=== PATIENT | female | born 1945 | race Caucasian/White ===

== ENCOUNTER 2017-11-01 13:27 | Inpatient (IN) | END 2017-11-07 16:04 | disposition home or self-care (01) | DRG 38 | DX: I65.23 Occlusion and stenosis of bilateral carotid arteries (principal); H34.11 Central retinal artery occlusion, right eye; E11.9 Type 2 diabetes mellitus without complications; I10 Essential (primary) hypertension; E78.5 Hyperlipidemia, unspecified; H54.61 Unqualified visual loss, right eye, normal vision left eye; N85.8 Other specified noninflammatory disorders of uterus; I25.10 Atherosclerotic heart disease of native coronary artery without angina pectoris; Z79.82 Long term (current) use of aspirin; Z79.4 Long term (current) use of insulin ==

== ENCOUNTER 2018-05-14 05:25 | Inpatient (IN) ==
[2018-05-14] MEDS ORDERED: Sodium Chlor 0.9% Inj 77.5 ML, Papaverine Inj 60 MG, Nitroglycerin Inj 100 MCG, dilTIAZ... IRRIGATION SCH ×3 (06:15)
[2018-05-14] MEDS ORDERED: Dextrose 50% in Water 50 ML Vial IV.PUSH PRN ×2 (06:15→12:08)
[2018-05-14] MEDS ORDERED: Chlorhexidine 4% Topical 120 APPLIC/120 ML Bottle TOPICAL SCH (06:15)
[2018-05-14] MEDS ORDERED: Sodium Chloride 0.9% Irr Bot 500 ML, ceFAZolin Inj 500 MG IRRIGATION SCH ×2 (06:15)
[2018-05-14] MEDS ORDERED: Insulin Regular (For Infusion) 100 UNIT in Sodium Chlor 0.9% Inj 99 ML IV.CONT PRN ×2 (06:15→12:08)
[2018-05-14] MEDS ORDERED: Metoprolol Tartrate 25 MG Tablet PO ONE (06:17)
[2018-05-14] MEDS ORDERED: Chlorhexidine Gluconate 2% 1 Pack (2 Cloths) TOPICAL ONE (06:17)
[2018-05-14] MEDS ORDERED: Heparin - SQ 10,000 UNITS/ML Vial ONE ×2 (06:39)
[2018-05-14] MEDS ORDERED: Sodium Chlor 0.9% Inj 500 ML IV.SIG SCH (07:00)
[2018-05-14] MEDS ORDERED: ceFAZolin 2 GM IV; once IV.SIG ONE (08:15)
[2018-05-14] MEDS ORDERED: Potassium Chlor 40 mEq Premix 40 MEQ/100 ML PIGGYBACK ONE (09:30)
[2018-05-14] MEDS ORDERED: ceFAZolin 1 GM Premix Inj 1 GM/50 ML FROZ.PIGGY IV.SIG ONE (12:06)
[2018-05-14] MEDS ORDERED: Calcium Chloride Inj 1 GM/10 ML Syringe IV.PUSH PRN (12:08)
[2018-05-14] MEDS ORDERED: Post-op Orders (for Pharmacy) OTHER STA (12:08)
[2018-05-14] MEDS ORDERED: Potassium Chlor 20 mEq Premix 20 MEQ/100 ML PIGGYBACK IV.SIG PRN ×3 (12:08)
[2018-05-14] MEDS ORDERED: Acetaminophen 650 MG Supp RECTAL PRN (12:08)
[2018-05-14] MEDS ORDERED: RESP: Racemic Epinephrine 2.25% 0.5 ML Neb NEB PRN (12:08)
[2018-05-14] MEDS ORDERED: hydrALAZINE HCl Inj 20 MG/ML Vial IV.PUSH PRN (12:08)
[2018-05-14] MEDS ORDERED: Calcium Chloride Inj 1 GM in Sodium Chlor 0.9% Inj 100 ML IV.SIG PRN (12:08)
[2018-05-14] MEDS ORDERED: Ketorolac Inj 30 MG/ML (IVP) Vial IV.PUSH PRN (12:08)
[2018-05-14] MEDS ORDERED: Albumin Human 5% Inj 250 ML IV.SIG PRN (12:08)
[2018-05-14] MEDS ORDERED: Metoprolol Inj 5 MG/5 ML Vial IV.PUSH PRN (12:08)
[2018-05-14] MEDS ORDERED: fentaNYL Citrate Inj 100 MCG/2 ML Ampul IV.PUSH PRN (12:08)
[2018-05-14] MEDS ORDERED: Acetaminophen 325 MG Tablet PO PRN (12:08)
[2018-05-14] MEDS ORDERED: Dexmedetomidine Inj 200 MCG in Sodium Chlor 0.9% Inj 48 ML IV.CONT PRN (12:08)
[2018-05-14] MEDS ORDERED: Magnesium Sulfate Inj 2 GM in Sodium Chlor 0.9% Inj 96 ML IV.SIG PRN ×4 (12:08)
[2018-05-14] MEDS ORDERED: Clevidipine Inj 25 MG/50 ML VIAL IV.CONT PRN (12:08)
--- NOTE | 2018-05-14 12:17 | P.OP ---
Date of procedure: 05/14/18 Anesthesia: VIELKA Surgeon: Manjinder Hunt MD Operation and Findings: PREPROCEDURE DIAGNOSES 1. Severe Multi Vessel Coronary Artery Disease. 2. Cervical cancer status post radiation therapy POSTPROCEDURE DIAGNOSES Same SURGICAL PROCEDURE 1. Off-pump Coronary Artery Bypass Grafting x 3 with Left Internal Mammary Artery (PAPPAS) to Left Anterior Descending (LAD), reverse saphenous vein graft to obtuse Marginal branch of the left Circumflex artery, reverse saphenous vein graft to the posterior Descending branch of the right Coronary artery 2. Left leg Endoscopic Vein [place] 3. Intraoperative Vein Mapping. SURGEON Manjinder Hunt MD CABLE SPLICER HELPER JON Song ANESTHESIA General endotracheal HVAC FIELD SERVICE TECHNICIAN MARTINEZ Conroy MD PREPARATION ChloraPrep. COUNTS Needle, sponge, and instrument counts were correct. DRAINS Two 32-Khmer mediastinal tubes. COMPLICATIONS None. INDICATIONS FOR PROCEDURE The patient is a 72-year-old presenting with chest pain. Patient was noted to have multi vessel coronary artery disease. The patient is being brought to the operating room for surgical revascularization therapy. PROCEDURE Patient was brought to the operating room and placed supine on the OR table. Following the induction of adequate general endotracheal anesthesia and placement of appropriate monitoring devices, intraoperative vein mapping was performed which revealed small but usable-caliber conduit in bilateral lower extremities. The patient was then prepped and draped in standard sterile fashion. Next, 2500 units of intravenous heparin was given. The left greater saphenous vein was harvested endoscopically. This appeared to be a useable- caliber conduit. Simultaneously, a median sternotomy was performed and the left internal mammary artery dissected free off the posterior sternal table. The patient was systemically heparinized and anticoagulation monitored by serial ACT measurements. The internal mammary artery had excellent pulsatile flow in it and was a good-caliber conduit. The pericardium was then divided in the midline, the cradle created and targets analyzed. At this point, all anastomoses were performed in a beating-heart fashion using the [employer] stabilizing system. The left internal mammary artery was anastomosed to the mid LAD (1.75 mm) in an end-to-side fashion using 7-0 Prolene. Segment of saphenous vein graft was then anastomosed to the OM1 (2 mm) in an end-to-side fashion using 7-0 Prolene. The final segment was anastomosed to the RPDA (2 mm) in an end-to-side fashion using 7-0 Prolene. The proximal anastomoses were then constructed to the ascending aorta in a running manner using 6-0 Prolene. All anastomotic sites were inspected and appeared to be hemostatic and patent. Protamine solution was given. Strict hemostasis was assured. The closure was undertaken. 2 chest tubes were placed. The pericardium was reapproximated in the midline. The sternum was approximated using sternal wires. The muscular and fascial layer were then closed in 3 layers. The endoscopic vein harvest site was closed in 2 layers. The patient tolerated the procedure well and was transferred to CVICU in stable condition.
[2018-05-14] MEDS ORDERED: ceFAZolin Inj 2,000 MG in Sodium Chlor 0.9% Inj 80 ML IV.SIG SCH (13:00)
[2018-05-14] MEDS ORDERED: Albumin Human 5% Inj 250 ML IV.SIG ONE (13:01)
[2018-05-14] MEDS ORDERED: fentaNYL Citrate Inj 250 MCG/5 ML Ampul ONE (13:10)
--- NOTE | 2018-05-14 14:03 | XR ---
EXAM DATE: 05/14/2018 1:59 PM EST AGE/SEX: 72 years / Female INDICATIONS: Post op cabg. CLINICAL DATA: This is the patient's initial encounter. Patient reports that signs and symptoms have been present for 1 day and indicates a pain score of Nonresponsive. MEDICAL/SURGICAL HISTORY: . diabetes, cervical cancer, hypertension, stroke . carotid endarter ectomy. COMPARISON: [facility], XR CHEST PA AND LAT, 05/06/2018. . FINDINGS: The endotracheal tube, left-sided chest tube and nasogastric tube are all in good position. There is a right-sided port. The catheter tip overlies the SVC. There is a left subclavian line the catheter f rom the subclavian overlies the SVC as well. The pulmonary parenchyma demonstrates only minimal atelectatic change at the left lung base. The osseous structures are intact. CONCLUSION: 1. Support equipment in satisfactory position. 2. Stable postoperative chest. Electronically signed by: Nicholas Coombs MD 05/14/2018 2:02 PM EST
[2018-05-14] MEDS: Mupirocin 2% Nasal Oint Topical Syringe EACH NARE SCH ×2 (14:25→21:19)
--- NOTE | 2018-05-14 14:54 | P.PNCV ---
- Note Subjective/Hospital Course: 72-year-old patient of Dr. Alpesh Matos, Dr. Markell Chun and Dr. Echavarria, initially seen 01/07/18 who has quite an extensive history, but had been complaining of some chest pain off and on for about 6 months. He had a recent nuclear stress test that showed small to moderate stress-induced inferior lateral wall ischemia. Cardiology was consulted at that time. During the course of that admission, she apparently had some vision loss in her right eye and went to her social work professor who sent her directly to the hospital. That was in October and she underwent a complete workup which showed 50-69% stenosis of both carotid arteries. 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 She underwent right carotid endarterectomy with patch angioplasty on 11/06/2017 and has been followed as an outpatient by her social work professor receiving injections of Avastin once a month to that right eye. In the meantime, she also had developed some vaginal spotting which started in April 2017, was initially seen by Urology and had a negative cystoscopy; however, due to the continuation of her vaginal bleeding , she underwent cervical biopsies, which showed a stage II cervical adenocarcinoma. Apparently the tumor has replaced the cervix and has extended into the parametrial tissue and proximal vaginal bilaterally. No tumor extension into the pelvic sidewalls. She received her Infusaport and has followed with Dr. Carias for radiation and chemotherapy with cisplatin by Dr. Rodriguez. She underwent evaluation of the chest pain and underwent cardiac catheterization, which showed left main disease 10% proximal, LAD 70%, the OM had 80% stenosis and the RCA 95%. The EF was 55%. We were consulted at that time to evaluate for coronary artery bypass grafting. PAST MEDICAL HISTORY: Includes carotid artery disease, stage II cervical adenocarcinoma, diabetes mellitus type 2, coronary artery disease chronic disease stage II, hyperlipidemia, hypertension, history of kidney stones, history of recent cerebrovascular accident with a right retinal artery embolism, cataracts. PAST SURGICAL HISTORY: Right carotid endarterectomy 11/06/2016, cataract surgery bilateral, cholecystectomy, cystectomy, left hip surgery, colonoscopy. She was seen again in [facility] with Dr Hunt 04/30/18, she has since undergone recent therapy of her cervical cancer with completion of the treatment 05/14 pt electively admitted for surgery 1. Off-pump Coronary Artery Bypass Grafting x 3 with Left Internal Mammary Artery (PAPPAS) to Left Anterior Descending (LAD), reverse saphenous vein graft to obtuse Marginal branch of the left Circumflex artery, reverse saphenous vein graft to the posterior Descending branch of the right Coronary artery 2. Left leg Endoscopic Vein [place] 3. Intraoperative Vein Mapping. Objective: Vital Signs - 24 hr 05/14/18 07:02 05/14/18 12:52 05/14/18 13:00 Temperature 98.1 F 97.5 F L Pulse Rate 76 58 L Respiratory Rate 18 12 12 Blood Pressure 130/77 124/53 L Pulse Oximetry 100 99 100 05/14/18 13:08 05/14/18 13:43 05/14/18 14:26 Temperature 97.5 F L Pulse Rate 77 Respiratory Rate 21 Blood Pressure Pulse Oximetry 05/14/18 14:34 Temperature 97.4 F L Pulse Rate 77 Respiratory Rate 14 Blood Pressure 109/52 L Pulse Oximetry 100 Labs: Laboratory Results - last 12 hr 05/14/18 05/14/18 05/14/18 06:35 06:45 06:45 POC Glucose 132 H Nasal Screen MRSA (PCR) Not detected Blood Type A Positive Antibody Screen Negative MTS Gel Crossmatch See Detail 05/14/18 14:01 POC Glucose 99 Nasal Screen MRSA (PCR) Blood Type Antibody Screen MTS Gel Crossmatch
[2018-05-14] MEDS: ceFAZolin 2 GM Premix Inj 2 GM/50 ML PIGGYBACK IV.SIG SCH (20:40)
[2018-05-14] MEDS: Morphine Sulfate Inj 2 MG/ML Vial IV.PUSH PRN ×2 (21:19→21:29)
[2018-05-14] MEDS: Amiodarone 200 MG Tablet PO SCH (21:19)
[2018-05-15] MEDS: ceFAZolin 2 GM Premix Inj 2 GM/50 ML PIGGYBACK IV.SIG SCH ×3 (05:10→19:49)
[2018-05-15] MEDS: Morphine Sulfate Inj 2 MG/ML Vial IV.PUSH PRN (05:11)
[2018-05-15 05:12] LABS: Hematocrit 21.2 % (35.0-46.0); Hemoglobin 7.5 gm/dL (11.6-15.3); Mean Corpuscular HGB Conc 35.1 % (32.0-36.0); Mean Corpuscular Hemoglobin 34.5 pg (27.0-34.0); Mean Corpuscular Volume 98.3 fL (80.0-100.0); Mean Platelet Volume 9.7 fL (7.0-11.0); Platelet Count 80 th/mm3 (150-450); Red Blood Count 2.16 mil/mm3 (4.00-5.30); Red Cell Distribution Width 14.3 % (11.6-17.2); White Blood Count 7.2 th/mm3 (4.0-11.0)
[2018-05-15 05:37] LABS: Calcium 7.9 mg/dL (8.5-10.1); Carbon Dioxide 24.1 meq/L (21.0-32.0); Magnesium 1.5 mg/dL (1.5-2.5); Potassium 4.5 meq/L (3.5-5.1)
--- NOTE | 2018-05-15 06:01 | XR ---
EXAM DATE: 05/15/2018 5:23 AM EST AGE/SEX: 72 years / Female INDICATIONS: Short of breath. CLINICAL DATA: This is the patient's subsequent encounter. Patient reports that signs and symptoms h ave been present for 2 days and indicates a pain score of 0/10. MEDICAL/SURGICAL HISTORY: . diabetes, cervical cancer, hypertension, stroke . CABG. carotid endarterectomy. COMPARISON: [facility] [place], CHEST 1V SINGLE AP, 05/14/2018. . FINDINGS: Endotracheal tube and nasogastric tube have been removed. Central and left chest tubes present withou t pneumothorax. [id number] in right atrium. Mild basilar airspace disease with probable trace pleu ral effusions. CONCLUSION: Cardiomegaly with mild basilar airspace disease. Interval extubation and removal of NG tube. No pneum othorax. Electronically signed by: Enoc Cote MD 05/15/2018 5:59 AM EST
--- NOTE | 2018-05-15 07:43 | ECG ---
Date Performed: 05/15/2018 Time Performed: 03:35:58 PTAGE: 72 years EKG: CONSIDER ACUTE ST ELEVATION FL Sinus rhythm with PAC(s) Short SC interval Anterolateral ST elevation, CONSIDER ACUTE INFARCT versus pericarditis Low QRS voltages in precordial leads Abnormal ECG PREVIOUS TRACING : 01/07/2018 08.22 DOCTOR: Zac Mcgrath Interpretating Date/Time 05/15/2018 07:43:01
[2018-05-15] MEDS ORDERED: Sod Phosphate/Sod Biphosphate (Adult) Enema 133 ML Bottle RECTAL PRN (08:37)
[2018-05-15] MEDS ORDERED: Dextrose 50% in Water 50 ML Vial IV.PUSH PRN (08:37)
[2018-05-15] MEDS ORDERED: Bisacodyl 10 MG Supp RECTAL PRN (08:37)
[2018-05-15] MEDS ORDERED: Insulin Detemir Inj 1,000 UNIT/10 ML Vial SQ ONE (08:37)
[2018-05-15] MEDS: Metoprolol Tartrate 25 MG Tablet PO SCH ×3 (09:12→21:49)
[2018-05-15] MEDS: Amiodarone 200 MG Tablet PO SCH ×2 (09:13→21:50)
[2018-05-15] MEDS: Multivitamin/Minerals Therapeutic Tablet PO SCH (09:13)
[2018-05-15] MEDS: Mupirocin 2% Nasal Oint Topical Syringe EACH NARE SCH ×2 (09:14→21:49)
[2018-05-15] MEDS: Insulin NovoLOG Aspart Correctional Sugar Inj SQ SCH ×4 (10:51→22:32)
--- NOTE | 2018-05-15 10:55 | P.DIET ---
Nutritional Evaluation Screening comments: MDC for diet education s/p CABG x 3 received. Patient Navigator to provide education. Consult RD if complexities with diet education arise.
--- NOTE | 2018-05-15 17:20 | P.PNCV ---
- Note Subjective/Hospital Course: 72-year-old patient of Dr. Alpesh Matos, Dr. Markell Chun and Dr. Echavarria, initially seen 01/07/18 who has quite an extensive history, but had been complaining of some chest pain off and on for about 6 months. He had a recent nuclear stress test that showed small to moderate stress-induced inferior lateral wall ischemia. Cardiology was consulted at that time. During the course of that admission, she apparently had some vision loss in her right eye and went to her child care associate teacher who sent her directly to the hospital. That was in October and she underwent a complete workup which showed 50-69% stenosis of both carotid arteries. 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 She underwent right carotid endarterectomy with patch angioplasty on 11/06/2017 and has been followed as an outpatient by her child care associate teacher receiving injections of Avastin once a month to that right eye. In the meantime, she also had developed some vaginal spotting which started in April 2017, was initially seen by Urology and had a negative cystoscopy; however, due to the continuation of her vaginal bleeding , she underwent cervical biopsies, which showed a stage II cervical adenocarcinoma. Apparently the tumor has replaced the cervix and has extended into the parametrial tissue and proximal vaginal bilaterally. No tumor extension into the pelvic sidewalls. She received her Infusaport and has followed with Dr. Carias for radiation and chemotherapy with cisplatin by Dr. Rodriguez. She underwent evaluation of the chest pain and underwent cardiac catheterization, which showed left main disease 10% proximal, LAD 70%, the OM had 80% stenosis and the RCA 95%. The EF was 55%. We were consulted at that time to evaluate for coronary artery bypass grafting. PAST MEDICAL HISTORY: Includes carotid artery disease, stage II cervical adenocarcinoma, diabetes mellitus type 2, coronary artery disease chronic disease stage II, hyperlipidemia, hypertension, history of kidney stones, history of recent cerebrovascular accident with a right retinal artery embolism, cataracts. PAST SURGICAL HISTORY: Right carotid endarterectomy 11/06/2016, cataract surgery bilateral, cholecystectomy, cystectomy, left hip surgery, colonoscopy. She was seen again in [facility] office with Dr Hunt 04/30/18, she has since undergone recent therapy of her cervical cancer with completion of the treatment 05/14 pt electively admitted for surgery 1. Off-pump Coronary Artery Bypass Grafting x 3 with Left Internal Mammary Artery (PAPPAS) to Left Anterior Descending (LAD), reverse saphenous vein graft to obtuse Marginal branch of the left Circumflex artery, reverse saphenous vein graft to the posterior Descending branch of the right Coronary artery 2. Left leg Endoscopic Vein [place] 3. Intraoperative Vein Mapping. 3500cc crystalloid , 240cc cell saver, 500cc EBL 05/15 pt up in chair mag replaced 1.5 hgb 7.5/ monitor / recheck labs in am continue amiodarone levemir to wean off insulin was o tresiba at home transfer to stepdown global st elevation / probable pericarditis / will monitor Objective: Vital Signs - 24 hr 05/14/18 18:29 05/14/18 19:00 05/14/18 20:49 Temperature 97.7 F Pulse Rate 75 73 Respiratory Rate 17 24 16 Blood Pressure 103/43 L Pulse Oximetry 99 99 05/14/18 21:27 05/14/18 23:00 05/15/18 01:39 Temperature 99 F Pulse Rate 75 Respiratory Rate 20 20 20 Blood Pressure 98/45 L Pulse Oximetry 99 05/15/18 03:00 05/15/18 04:36 05/15/18 07:00 Temperature 99.8 F H 97.6 F Pulse Rate 85 88 92 H Respiratory Rate 18 14 16 Blood Pressure 99/48 L 137/60 Pulse Oximetry 92 L 94 L 05/15/18 08:59 05/15/18 10:46 05/15/18 11:00 Temperature 98.2 F Pulse Rate 101 H 78 Respiratory Rate 17 20 16 Blood Pressure 112/54 L Pulse Oximetry 96 96 05/15/18 11:54 05/15/18 13:31 05/15/18 15:00 Temperature 98.2 F 98.6 F Pulse Rate 71 73 84 Respiratory Rate 16 18 Blood Pressure 112/54 L 115/73 Pulse Oximetry 96 98 05/15/18 15:04 05/15/18 16:00 05/15/18 16:15 Temperature 98.2 F Pulse Rate 79 78 Respiratory Rate 18 18 17 Blood Pressure 116/57 L Pulse Oximetry 94 L 05/15/18 17:00 Temperature Pulse Rate 83 Respiratory Rate Blood Pressure Pulse Oximetry GENERAL: A&O x 3 SKIN: Warm and dry. prevena dressing to chest , incision intact to left leg HEAD: Normocephalic. EYES: No scleral icterus. No injection or drainage. NECK: Supple, trachea midline. No JVD or lymphadenopathy. CARDIOVASCULAR: Regular rate and rhythm without murmurs, gallops,+ rubs. RESPIRATORY: Breath sounds equal bilaterally. No accessory muscle use. diminished in bases / chest tube to wall suction, no air leak GASTROINTESTINAL: Abdomen soft, non-tender, nondistended. MUSCULOSKELETAL: No cyanosis, or edema. BACK: Nontender without obvious deformity. No CVA tenderness. Labs: Laboratory Results - last 12 hr 05/15/18 05/15/18 05/15/18 04:45 04:45 08:16 WBC 7.2 RBC 2.16 L Hgb 7.5 L Hct 21.2 L MCV 98.3 MCH 34.5 H MCHC 35.1 RDW 14.3 Plt Count 80 L MPV 9.7 Sodium 139 Potassium 4.5 D Chloride 108 H Carbon Dioxide 24.1 Anion Gap 7 BUN 15 Creatinine 0.89 Estimated GFR 62 L POC Glucose 163 H Random Glucose 106 Calcium 7.9 L D Magnesium 1.5 05/15/18 05/15/18 10:44 14:59 WBC RBC Hgb Hct MCV MCH MCHC RDW Plt Count MPV Sodium Potassium Chloride Carbon Dioxide Anion Gap BUN Creatinine Estimated GFR POC Glucose 188 H 191 H Random Glucose Calcium Magnesium Result Diagrams: 05/15/18 04:45 05/15/18 04:45 ASA, statin , , amiodarone gentle diuresis monitor plt / hold plavix today monitor HGB OOB ambulate resume metformin / add bid levemir
[2018-05-15] MEDS: Docusate Sodium 100 MG Capsule PO SCH (21:50)
[2018-05-15] MEDS: Insulin Detemir Inj 1,000 UNIT/10 ML Vial SQ SCH (21:51)
[2018-05-16] MEDS: Insulin NovoLOG Aspart Correctional Sugar Inj SQ SCH ×5 (02:37→21:10)
[2018-05-16] MEDS: ceFAZolin 2 GM Premix Inj 2 GM/50 ML PIGGYBACK IV.SIG SCH (04:00)
[2018-05-16 04:40] LABS: Baso % (Auto) 0.4 % (0.0-2.0); Eos % (Auto) 0.2 % (0.0-4.0); Lymph # (Auto) 0.4 th/mm3 (1.0-4.8); Mean Corpuscular HGB Conc 34.4 % (32.0-36.0); Mean Corpuscular Volume 98.9 fL (80.0-100.0); Mean Platelet Volume 9.1 fL (7.0-11.0); Mono # (Auto) 0.4 th/mm3 (0.0-0.9); Mono % (Auto) 7.8 % (0.0-8.0); Neut # (Auto) 4.6 th/mm3 (1.8-7.7); Neut % (Auto) 84.6 % (16.0-70.0); Red Blood Count 1.88 mil/mm3 (4.00-5.30); Red Cell Distribution Width 14.3 % (11.6-17.2); White Blood Count 5.5 th/mm3 (4.0-11.0)
[2018-05-16 04:49] LABS: Hematocrit 18.6 % (35.0-46.0); Hemoglobin 6.4 gm/dL (11.6-15.3)
[2018-05-16 04:50] LABS: Platelet Count 5 th/mm3 (150-450)
[2018-05-16 05:05] LABS: Calcium 8.2 mg/dL (8.5-10.1); Carbon Dioxide 25.9 meq/L (21.0-32.0); Magnesium 2.2 mg/dL (1.5-2.5); Potassium 4.1 meq/L (3.5-5.1)
[2018-05-16 06:08] LABS: Platelet Estimate Rare (Normal); Platelet Morphology Normal (Normal)
[2018-05-16] MEDS: Polyethylene Glycol 3350 17 GM Packet PO SCH (08:54)
[2018-05-16] MEDS: Multivitamin/Minerals Therapeutic Tablet PO SCH (08:55)
[2018-05-16] MEDS: Metoprolol Tartrate 25 MG Tablet PO SCH ×2 (08:55→21:10)
[2018-05-16] MEDS: Amiodarone 200 MG Tablet PO SCH ×2 (08:56→21:10)
[2018-05-16] MEDS: Docusate Sodium 100 MG Capsule PO SCH ×2 (08:56→21:10)
[2018-05-16] MEDS: Insulin Detemir Inj 1,000 UNIT/10 ML Vial SQ SCH ×2 (08:57→21:11)
[2018-05-16] MEDS: Mupirocin 2% Nasal Oint Topical Syringe EACH NARE SCH ×2 (08:57→22:24)
--- NOTE | 2018-05-16 17:53 | P.PNCV ---
- Note Subjective/Hospital Course: 72-year-old patient of Dr. Alpesh Matos, Dr. Markell Chun and Dr. Echavarria, initially seen 01/07/18 who has quite an extensive history, but had been complaining of some chest pain off and on for about 6 months. He had a recent nuclear stress test that showed small to moderate stress-induced inferior lateral wall ischemia. Cardiology was consulted at that time. During the course of that admission, she apparently had some vision loss in her right eye and went to her customer manager who sent her directly to the hospital. That was in October and she underwent a complete workup which showed 50-69% stenosis of both carotid arteries. 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 She underwent right carotid endarterectomy with patch angioplasty on 11/06/2017 and has been followed as an outpatient by her customer manager receiving injections of Avastin once a month to that right eye. In the meantime, she also had developed some vaginal spotting which started in April 2017, was initially seen by Urology and had a negative cystoscopy; however, due to the continuation of her vaginal bleeding , she underwent cervical biopsies, which showed a stage II cervical adenocarcinoma. Apparently the tumor has replaced the cervix and has extended into the parametrial tissue and proximal vaginal bilaterally. No tumor extension into the pelvic sidewalls. She received her Infusaport and has followed with Dr. Carias for radiation and chemotherapy with cisplatin by Dr. Rodriguez. She underwent evaluation of the chest pain and underwent cardiac catheterization, which showed left main disease 10% proximal, LAD 70%, the OM had 80% stenosis and the RCA 95%. The EF was 55%. We were consulted at that time to evaluate for coronary artery bypass grafting. PAST MEDICAL HISTORY: Includes carotid artery disease, stage II cervical adenocarcinoma, diabetes mellitus type 2, coronary artery disease chronic disease stage II, hyperlipidemia, hypertension, history of kidney stones, history of recent cerebrovascular accident with a right retinal artery embolism, cataracts. PAST SURGICAL HISTORY: Right carotid endarterectomy 11/06/2016, cataract surgery bilateral, cholecystectomy, cystectomy, left hip surgery, colonoscopy. She was seen again in [facility] office with Dr Hunt 04/30/18, she has since undergone recent therapy of her cervical cancer with completion of the treatment 05/14 pt electively admitted for surgery 1. Off-pump Coronary Artery Bypass Grafting x 3 with Left Internal Mammary Artery (PAPPAS) to Left Anterior Descending (LAD), reverse saphenous vein graft to obtuse Marginal branch of the left Circumflex artery, reverse saphenous vein graft to the posterior Descending branch of the right Coronary artery 2. Left leg Endoscopic Vein [place] 3. Intraoperative Vein Mapping. 3500cc crystalloid , 240cc cell saver, 500cc EBL 05/15 pt up in chair mag replaced 1.5 hgb 7.5/ monitor / recheck labs in am continue amiodarone levemir to wean off insulin was o tresiba at home transfer to stepdown global st elevation / probable pericarditis / will monitor 05/16 pt with worsening post blood loss anemia , HGB 6.4, PLT count 5?? s/p 2 units PRBC and one pk plt hematology consulted, HIT panel will leave chest tubes in Objective: Vital Signs - 24 hr 05/15/18 18:00 05/15/18 19:00 05/15/18 19:27 Temperature Pulse Rate 68 91 H Respiratory Rate Blood Pressure Pulse Oximetry 96 05/15/18 20:00 05/15/18 21:00 05/15/18 22:00 Temperature 97.5 F L Pulse Rate 89 80 77 Respiratory Rate 18 Blood Pressure 152/65 H Pulse Oximetry 98 05/15/18 23:00 05/16/18 00:00 05/16/18 01:00 Temperature 97.5 F L Pulse Rate 81 89 76 Respiratory Rate 18 Blood Pressure 152/65 H Pulse Oximetry 98 05/16/18 02:00 05/16/18 03:00 05/16/18 04:00 Temperature 98 F Pulse Rate 76 81 79 Respiratory Rate 18 Blood Pressure 108/53 L Pulse Oximetry 98 05/16/18 05:00 05/16/18 05:50 05/16/18 05:58 Temperature 98.4 F 99.1 F Pulse Rate 80 70 71 Respiratory Rate 18 Blood Pressure 117/57 L 110/52 L Pulse Oximetry 98 98 05/16/18 06:00 05/16/18 06:05 05/16/18 06:30 Temperature 98.6 F 98.1 F Pulse Rate 80 70 70 Respiratory Rate 18 Blood Pressure 107/53 L 107/54 L Pulse Oximetry 98 05/16/18 06:39 05/16/18 06:49 05/16/18 07:00 Temperature 98.1 F 98.4 F Pulse Rate 68 71 75 Respiratory Rate 18 18 Blood Pressure 114/51 L 113/55 L Pulse Oximetry 99 100 05/16/18 08:00 05/16/18 09:00 05/16/18 09:21 Temperature 98.4 F Pulse Rate 74 78 81 Respiratory Rate 18 Blood Pressure 124/63 Pulse Oximetry 99 94 L 05/16/18 10:00 05/16/18 10:05 05/16/18 10:10 Temperature Pulse Rate 74 Respiratory Rate 18 Blood Pressure Pulse Oximetry 98 05/16/18 11:00 05/16/18 11:50 05/16/18 12:00 Temperature 97.9 F 97.9 F Pulse Rate 74 73 78 Respiratory Rate 18 18 Blood Pressure 108/54 L 100/50 L Pulse Oximetry 94 L 94 L 05/16/18 12:10 05/16/18 13:00 05/16/18 13:33 Temperature 98.6 F Pulse Rate 82 76 Respiratory Rate 18 18 Blood Pressure 100/50 L Pulse Oximetry 93 L 05/16/18 14:00 05/16/18 15:00 05/16/18 15:57 Temperature 98.2 F Pulse Rate 82 90 93 H Respiratory Rate 18 Blood Pressure 156/68 H Pulse Oximetry 94 L 05/16/18 16:00 Temperature Pulse Rate 84 Respiratory Rate Blood Pressure Pulse Oximetry GENERAL: A&O x 3 SKIN: Warm and dry. prevena dressing to chest , incision intact to left leg HEAD: Normocephalic. EYES: No scleral icterus. No injection or drainage. NECK: Supple, trachea midline. No JVD or lymphadenopathy. CARDIOVASCULAR: Regular rate and rhythm without murmurs, gallops, or rubs. RESPIRATORY: Breath sounds equal bilaterally. No accessory muscle use. slightly diminished in bases, chest tube to wall suction, no air leak / drained 250cc/ 24 hrs GASTROINTESTINAL: Abdomen soft, non-tender, nondistended. MUSCULOSKELETAL: No cyanosis, or edema. BACK: Nontender without obvious deformity. No CVA tenderness. Labs: Laboratory Results - last 12 hr 05/14/18 05/16/18 05/16/18 06:45 04:10 11:44 WBC Differential . Diff Scan Auto diff confirmed Platelet Estimate Rare L Platelet Morphology Normal POC Glucose 257 H Blood Type A Positive Antibody Screen Negative MTS Gel Crossmatch See Detail 05/16/18 05/16/18 17:15 17:31 WBC Differential Diff Scan Platelet Estimate Platelet Morphology POC Glucose 31 L* 130 H Blood Type Antibody Screen MTS Gel Crossmatch Result Diagrams: 05/16/18 04:10 05/16/18 04:10 Telemetry: NSR - Plan (3) S/P CABG x 3 Plan: hold ASA, plavix for now with severe pancytopenia hematology consult pulm toielting OOB as tolerated, will leave chest tubes in transfused with 2 units PRBC and PLT
[2018-05-16 18:30] LABS: Hematocrit 27.3 % (35.0-46.0); Hemoglobin 9.6 gm/dL (11.6-15.3); Mean Corpuscular HGB Conc 35.2 % (32.0-36.0); Mean Corpuscular Hemoglobin 33.1 pg (27.0-34.0); Mean Corpuscular Volume 94.1 fL (80.0-100.0); Mean Platelet Volume 9.2 fL (7.0-11.0); Platelet Count 120 th/mm3 (150-450); Red Cell Distribution Width 17.8 % (11.6-17.2); White Blood Count 7.9 th/mm3 (4.0-11.0)
[2018-05-16 18:35] LABS: Albumin 2.5 g/dL (3.4-5.0)
[2018-05-16 18:36] LABS: Total Protein 5.6 g/dL (6.4-8.2)
[2018-05-16 18:39] LABS: Activated Partial Thrombo Time 24.5 sec (23.4-31.7); Prothrombin Time 10.3 sec (9.8-11.6)
[2018-05-16 18:58] LABS: Folate 11.9 ng/mL (3.1-17.5)
--- NOTE | 2018-05-16 20:31 | US ---
EXAM DATE: 05/16/2018 8:25 PM EST AGE/SEX: 72 years / Female INDICATIONS: Bilateral leg pain. CLINICAL DATA: This is the patient's initial encounter. Patient reports that signs and symptoms have been present for 1 day and indicates a pain score of 2/10. MEDICAL/SURGICAL HISTORY: Arthritis. Hypertension. Hypothyroidism. Diabetes. Cervical cancer . Stroke. CABG. High Cholesterol. PAD. [place]. . Cholecystectomy. Carotid endarterectomy. Eye surger y. COMPARISON: [facility] [place], US VENOUS DOPPLER LEG BI, 01/07/2018. . TECHNIQUE: Venous ultrasound of both lower extremities was performed from the inguinal ligament to t he proximal calf. Real-time, color Doppler and spectral tracing, compression and augmentation techni ques were used. FINDINGS: Right Leg: Occlusive thrombus in the right posterior tibial vein. Remainder of the right lower extre mity veins appear patent. Left Leg: Normal compression of the deep venous system from the inguinal region to the proximal calf . No echogenic clot is seen. Normal response of the venous system to augmentation and respiration. Other: None. CONCLUSION: 1. Positive occlusive thrombus in the right posterior tibial vein. Remainder of the deep venous syst em on the right and left side is unremarkable. Electronically signed by: Enoc Cote MD 05/16/2018 8:30 PM EST
--- NOTE | 2018-05-16 20:33 | US ---
EXAM DATE: 05/16/2018 8:29 PM EST AGE/SEX: 72 years / Female INDICATIONS: Bilateral arm pain. CLINICAL DATA: This is the patient's initial encounter. Patient reports that signs and symptoms have been present for 1 day and indicates a pain score of 1/10. MEDICAL/SURGICAL HISTORY: Arthritis. Diabetes. Hypertension. CAD. High Cholesterol. Hypothyr oidism. PAD. Stroke. Cholecystectomy. carotid endarterectomy. Eye Surgery. COMPARISON: . FINDINGS: Right Upper Extremity: The vessels are compressible and augmentation response is documented. No fill ing defects are seen. The flow is phasic with respiration. Left Upper Extremity: The vessels are compressible and augmentation response is documented. No filli ng defects are seen. The flow is phasic with respiration. Other: None. CONCLUSION: 1. No acute venous thrombosis identified. Left subclavian not visualized due to bandaging. Electronically signed by: Enoc Cote MD 05/16/2018 8:31 PM EST
--- NOTE | 2018-05-16 22:23 | MB ---
cc: Carlene Diaz MD DATE: 05/16/2018 CHIEF COMPLAINT: 1. Anemia. 2. Thrombocytopenia. 3. History of cervical cancer. 4. Coronary artery disease status post bypass surgery. HISTORY OF PRESENT ILLNESS: Ms. Jesus is a 72-year-old lady with an extensive and complicated past medical history that includes coronary artery disease and stage II cervical adenocarcinoma. She had reported that she has had chest pain on and off for approximately 6 months prior to presentation. Stress test showed small to moderate stress-induced inferior lateral wall ischemia. She had vision loss in her right eye and was evaluated by her integrated marketing specialist who recommended hospital admission. She was found to have 50-69% stenosis of both carotid arteries. 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 She underwent right carotid endarterectomy with patch angioplasty on 11/06/2017 and was followed by an outpatient integrated marketing specialist for Avastin injections. She also had vaginal spotting for approximately a year. Cervical biopsy showed stage II cervical adenocarcinoma. She received concurrent chemotherapy and radiation therapy under the direction of Dr. Carias and Dr. Rodriguez. The laboratory studies that we have on file during her treatment show platelet count 02/19/2018 of 131,000, hemoglobin 10.2, white blood cell count 4.5. She is approximately 6 weeks out from her concurrent chemotherapy and radiation therapy. CBC from 02/04/2018 with white blood cell count 5.8, hemoglobin 10.5, and platelet count is 192,000. Heart catheterization showed stenosis, and she underwent coronary artery bypass graft on 05/14/2015 under the direction of Dr. Hunt. PAST MEDICAL HISTORY: 1. Carotid artery disease. 2. Coronary artery disease. 3. Stage II cervical adenocarcinoma. 4. Diabetes mellitus type 2. 5. Hyperlipidemia. 6. Hypertension. 7. Stroke. 8. Cataracts. PAST SURGICAL HISTORY: 1. Right carotid endarterectomy. 2. Bilateral cataract surgery. 3. Cholecystectomy. 4. Cystectomy. 5. Left hip surgery. 6. Colonoscopy. 7. Recent CABG performed this week. SOCIAL HISTORY: She is . She has a good support system. She denies tobacco, alcohol, illegal drug use. FAMILY HISTORY: No known family history of malignancy. REVIEW OF SYSTEMS: As above in the HPI. All others negative. PHYSICAL EXAMINATION: VITAL SIGNS: Temperature 98.2, pulse 82, respiratory rate 18, blood pressure 156/68. GENERAL: Well-developed, well-nourished lady in no distress. HEENT: Head is normocephalic, atraumatic. Eyes: No scleral icterus. NECK: Supple. CARDIOVASCULAR: Regular rate and rhythm. No murmurs. LUNGS: Clear to auscultation bilaterally. Chest wall with a midline incision. ABDOMEN: Soft, nontender, nondistended. Bowel sounds present. EXTREMITIES: No edema. NEUROLOGIC: Grossly nonfocal. PSYCHIATRIC: Appropriate mood and affect. LABORATORY STUDIES: White blood cell count from 05/15/2018 is 7.2, hemoglobin 7.5, and platelet count is 80,000. From 05/16/2018, white blood cell count 5.5, hemoglobin 6.4, and platelet count 5000. And, from 05/16/2018 after transfusion of 2 units of packed red blood cells and 2 units of platelets, white blood cell count 7.9, hemoglobin 9.6, and platelet count is 120,000. Haptoglobin is 202. Coags are within normal limits. Fibrinogen is 448, total bilirubin 0.7, direct bilirubin is 0.2, indirect bilirubin is 0.5, AST and ALT are 15 and 68 respectively. Vitamin B12 was low at 207. Heparin platelet antibody testing is pending from this afternoon. Ultrasound of bilateral upper and lower extremity is also pending to evaluate for blood clot. ASSESSMENT AND PLAN: Severe thrombocytopenia with a platelet count of 5000. She is status post transfusion with good response. She has recently been exposed to heparin and she would be at high risk for heparin-induced thrombocytopenia. Ultrasound results pending, but no clinical evidence of thrombosis or skin reaction. Heparin products have been discontinued. given recent surgery and extremely low single digit platelet count, will hold off on full intensity anticoagulation with argatroban at this time. The patient has no history of lupus or rheumatologic disorder that would point toward an antiphospholipid antibody syndrome. This is unlikely. With normal coags and fibrinogen, unlikely to have disseminated intravascular coagulation. Evaluated for thrombotic microangiopathy. Haptoglobin is within normal limits and LDH is also within normal limits. I review peripheral blood smears, and there were some abnormal red blood cells per 100 high power field; however, this could be residual effects from her known surgery; thrombotic microangiography is less likely. The patient could certainly have underlying bone marrow disorder or bone marrow stressors, especially given recent pelvic radiation therapy and chemotherapy. Antiplatelet agents on hold. Discussed with the patient that this is a very difficult clinical scenario with someone who has recently had a major cardiovascular surgery and she is at increased risk of bleeding, but she is also at increased risk of clotting and would ideally be on dual antiplatelet therapy and systemic anticoagulation while we are awaiting results of heparin studies. Will continue to follow closely. The patient voiced understanding. MD AIDEN Fernandes/jaime , 08:07 PM , 08:18 PM
[2018-05-17 05:54] LABS: Hematocrit 24.3 % (35.0-46.0); Hemoglobin 8.6 gm/dL (11.6-15.3); Mean Corpuscular HGB Conc 35.5 % (32.0-36.0); Mean Corpuscular Hemoglobin 33.2 pg (27.0-34.0); Mean Corpuscular Volume 93.4 fL (80.0-100.0); Mean Platelet Volume 9.4 fL (7.0-11.0); Platelet Count 103 th/mm3 (150-450); Red Cell Distribution Width 18.1 % (11.6-17.2); White Blood Count 5.3 th/mm3 (4.0-11.0)
[2018-05-17 06:24] LABS: Albumin 2.2 g/dL (3.4-5.0); Anion Gap 5 meq/L (5-15); Aspartate Aminotransferase 14 U/L (15-37); Blood Urea Nitrogen 14 mg/dL (7-18); Calcium 8.1 mg/dL (8.5-10.1); Chloride 106 meq/L (98-107); Glomerular Filtration Rate 59 mL/min (>89); Glucose,Random 134 mg/dL (74-106); Magnesium 1.9 mg/dL (1.5-2.5); Potassium 4.1 meq/L (3.5-5.1); Sodium 140 meq/L (136-145)
[2018-05-17 06:25] LABS: Alanine Aminotransferase 6 U/L (10-53)
[2018-05-17 06:27] LABS: Alkaline Phosphatase 61 U/L (45-117); Total Protein 5.1 g/dL (6.4-8.2)
[2018-05-17] MEDS: Insulin NovoLOG Aspart Correctional Sugar Inj SQ SCH ×4 (08:27→20:56)
[2018-05-17] MEDS: Multivitamin/Minerals Therapeutic Tablet PO SCH (08:28)
[2018-05-17] MEDS: Docusate Sodium 100 MG Capsule PO SCH ×2 (08:28→20:56)
[2018-05-17] MEDS: Mupirocin 2% Nasal Oint Topical Syringe EACH NARE SCH ×2 (08:28→21:15)
[2018-05-17] MEDS: Amiodarone 200 MG Tablet PO SCH ×2 (08:28→20:57)
[2018-05-17] MEDS: Metoprolol Tartrate 25 MG Tablet PO SCH ×2 (08:28→20:56)
[2018-05-17] MEDS: Insulin Detemir Inj 1,000 UNIT/10 ML Vial SQ SCH ×2 (08:28→20:57)
[2018-05-17] MEDS: Polyethylene Glycol 3350 17 GM Packet PO SCH (08:29)
--- NOTE | 2018-05-17 16:13 | P.PNCV ---
- Note Subjective/Hospital Course: 72-year-old patient of Dr. Alpesh Matos, Dr. Markell Chun and Dr. Echavarria, initially seen 01/07/18 who has quite an extensive history, but had been complaining of some chest pain off and on for about 6 months. He had a recent nuclear stress test that showed small to moderate stress-induced inferior lateral wall ischemia. Cardiology was consulted at that time. During the course of that admission, she apparently had some vision loss in her right eye and went to her circulation clerk who sent her directly to the hospital. That was in October and she underwent a complete workup which showed 50-69% stenosis of both carotid arteries. 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 She underwent right carotid endarterectomy with patch angioplasty on 11/06/2017 and has been followed as an outpatient by her circulation clerk receiving injections of Avastin once a month to that right eye. In the meantime, she also had developed some vaginal spotting which started in April 2017, was initially seen by Urology and had a negative cystoscopy; however, due to the continuation of her vaginal bleeding , she underwent cervical biopsies, which showed a stage II cervical adenocarcinoma. Apparently the tumor has replaced the cervix and has extended into the parametrial tissue and proximal vaginal bilaterally. No tumor extension into the pelvic sidewalls. She received her Infusaport and has followed with Dr. Carias for radiation and chemotherapy with cisplatin by Dr. Rodriguez. She underwent evaluation of the chest pain and underwent cardiac catheterization, which showed left main disease 10% proximal, LAD 70%, the OM had 80% stenosis and the RCA 95%. The EF was 55%. We were consulted at that time to evaluate for coronary artery bypass grafting. PAST MEDICAL HISTORY: Includes carotid artery disease, stage II cervical adenocarcinoma, diabetes mellitus type 2, coronary artery disease chronic disease stage II, hyperlipidemia, hypertension, history of kidney stones, history of recent cerebrovascular accident with a right retinal artery embolism, cataracts. PAST SURGICAL HISTORY: Right carotid endarterectomy 11/06/2016, cataract surgery bilateral, cholecystectomy, cystectomy, left hip surgery, colonoscopy. She was seen again in [facility] office with Dr Hunt 04/30/18, she has since undergone recent therapy of her cervical cancer with completion of the treatment 05/14 pt electively admitted for surgery 1. Off-pump Coronary Artery Bypass Grafting x 3 with Left Internal Mammary Artery (PAPPAS) to Left Anterior Descending (LAD), reverse saphenous vein graft to obtuse Marginal branch of the left Circumflex artery, reverse saphenous vein graft to the posterior Descending branch of the right Coronary artery 2. Left leg Endoscopic Vein Holman 3. Intraoperative Vein Mapping. 3500cc crystalloid , 240cc cell saver, 500cc EBL 05/15 pt up in chair mag replaced 1.5 hgb 7.5/ monitor / recheck labs in am continue amiodarone levemir to wean off insulin was o tresiba at home transfer to stepdown global st elevation / probable pericarditis / will monitor 05/16 pt with worsening post blood loss anemia , HGB 6.4, PLT count 5?? s/p 2 units PRBC and one pk plt hematology consulted, HIT panel will leave chest tubes in 05/17 appreciate input from Heme HGB and plt improved post transfusion HIT panel neg / serotonin assay pending chest tube and cvc line dc still await further Heme workup labs Objective: Vital Signs - 24 hr 05/16/18 17:00 05/16/18 18:00 05/16/18 18:23 Temperature Pulse Rate 85 82 Respiratory Rate 18 Blood Pressure Pulse Oximetry 05/16/18 19:00 05/16/18 20:00 05/16/18 21:00 Temperature 98.4 F Pulse Rate 81 89 78 Respiratory Rate 18 Blood Pressure 136/60 Pulse Oximetry 94 L 05/16/18 21:40 05/16/18 22:00 05/16/18 23:00 Temperature Pulse Rate 86 77 94 H Respiratory Rate 17 Blood Pressure Pulse Oximetry 94 L 05/17/18 00:00 05/17/18 01:00 05/17/18 02:00 Temperature 98.4 F Pulse Rate 89 76 76 Respiratory Rate 18 Blood Pressure 147/65 H Pulse Oximetry 95 05/17/18 03:00 05/17/18 03:27 05/17/18 04:00 Temperature 98 F Pulse Rate 75 68 68 Respiratory Rate 18 Blood Pressure 115/55 L Pulse Oximetry 98 05/17/18 05:00 05/17/18 05:50 05/17/18 07:00 Temperature Pulse Rate 69 71 81 Respiratory Rate Blood Pressure Pulse Oximetry 05/17/18 08:00 05/17/18 08:28 05/17/18 09:00 Temperature 98.5 F Pulse Rate 76 78 85 Respiratory Rate 18 18 Blood Pressure 135/63 Pulse Oximetry 98 92 L 05/17/18 09:09 05/17/18 10:00 05/17/18 11:00 Temperature Pulse Rate 76 82 Respiratory Rate 18 Blood Pressure Pulse Oximetry 05/17/18 11:51 05/17/18 12:00 05/17/18 13:00 Temperature 98.0 F Pulse Rate 72 77 Respiratory Rate 18 18 Blood Pressure 107/56 L Pulse Oximetry 92 L 05/17/18 14:00 05/17/18 15:00 Temperature Pulse Rate 84 75 Respiratory Rate Blood Pressure Pulse Oximetry GENERAL: A&O x 3 SKIN: Warm and dry. prevena dressing to chest , incision intact to left leg HEAD: Normocephalic. EYES: No scleral icterus. No injection or drainage. NECK: Supple, trachea midline. No JVD or lymphadenopathy. CARDIOVASCULAR: Regular rate and rhythm without murmurs, gallops, or rubs. RESPIRATORY: Breath sounds equal bilaterally. No accessory muscle use. GASTROINTESTINAL: Abdomen soft, non-tender, nondistended. MUSCULOSKELETAL: No cyanosis, or edema. BACK: Nontender without obvious deformity. No CVA tenderness. Labs: Laboratory Results - last 12 hr 05/16/18 05/17/18 05/17/18 15:10 05:20 05:20 WBC 5.3 RBC 2.60 L Hgb 8.6 L Hct 24.3 L MCV 93.4 MCH 33.2 MCHC 35.5 RDW 18.1 H Plt Count 103 L MPV 9.4 Sodium 140 Potassium 4.1 Chloride 106 Carbon Dioxide 29.0 Anion Gap 5 BUN 14 Creatinine 0.93 Estimated GFR 59 L POC Glucose Random Glucose 134 H Calcium 8.1 L Magnesium 1.9 Total Bilirubin 0.4 AST 14 L ALT 6 L Alkaline Phosphatase 61 Total Protein 5.1 L Albumin 2.2 L Heparin Dep Plt Ab OD 0.281 Hep-Induced Plt Ab Mitali Negative 05/17/18 05/17/18 07:44 11:45 WBC RBC Hgb Hct MCV MCH MCHC RDW Plt Count MPV Sodium Potassium Chloride Carbon Dioxide Anion Gap BUN Creatinine Estimated GFR POC Glucose 158 H 131 H Random Glucose Calcium Magnesium Total Bilirubin AST ALT Alkaline Phosphatase Total Protein Albumin Heparin Dep Plt Ab OD Hep-Induced Plt Ab Mitali Result Diagrams: 05/17/18 05:20 05/17/18 05:20 Telemetry: NSR - Plan (3) S/P CABG x 3 Plan: resume ASA, plavix for now w hematology consult pulm toielting OOB as tolerated, chest tubes dc (7) Pancytopenia Plan: Heme following continue to hold plavix monitor labs
--- NOTE | 2018-05-17 18:14 | P.PNONC ---
Subjective Interval history: Resting comfortably in bedside chair. No distress Denies pain. Looking forward to hospital discharge and going to rehab. Objective Vital Signs/Intake & Output: Vital Signs 05/16/18 18:23 05/16/18 19:00 05/16/18 20:00 Temperature 98.4 F Pulse Rate 81 89 Respiratory Rate 18 18 Blood Pressure 136/60 Pulse Oximetry 94 L 05/16/18 21:00 05/16/18 21:40 05/16/18 22:00 Temperature Pulse Rate 78 86 77 Respiratory Rate 17 Blood Pressure Pulse Oximetry 94 L 05/16/18 23:00 05/17/18 00:00 05/17/18 01:00 Temperature 98.4 F Pulse Rate 94 H 89 76 Respiratory Rate 18 Blood Pressure 147/65 H Pulse Oximetry 95 05/17/18 02:00 05/17/18 03:00 05/17/18 03:27 Temperature 98 F Pulse Rate 76 75 68 Respiratory Rate 18 Blood Pressure 115/55 L Pulse Oximetry 98 05/17/18 04:00 05/17/18 05:00 05/17/18 05:50 Temperature Pulse Rate 68 69 71 Respiratory Rate Blood Pressure Pulse Oximetry 05/17/18 07:00 05/17/18 08:00 05/17/18 08:28 Temperature 98.5 F Pulse Rate 81 76 78 Respiratory Rate 18 18 Blood Pressure 135/63 Pulse Oximetry 98 92 L 05/17/18 09:00 05/17/18 09:09 05/17/18 10:00 Temperature Pulse Rate 85 76 Respiratory Rate 18 Blood Pressure Pulse Oximetry 05/17/18 11:00 05/17/18 11:51 05/17/18 12:00 Temperature 98.0 F Pulse Rate 82 72 Respiratory Rate 18 18 Blood Pressure 107/56 L Pulse Oximetry 92 L 05/17/18 13:00 05/17/18 14:00 05/17/18 15:00 Temperature Pulse Rate 77 84 75 Respiratory Rate Blood Pressure Pulse Oximetry 05/17/18 16:00 05/17/18 17:00 05/17/18 17:59 Temperature 98.6 F Pulse Rate 76 80 82 Respiratory Rate 18 Blood Pressure 153/65 H Pulse Oximetry 95 Intake & Output 05/16/18 05/17/18 05/17/18 18:59 06:59 18:59 Intake Total 1400 / 1400 480 / 480 630 / 630 Output Total 960 / 960 930 / 930 1100 / 1100 Balance 440 / 440 -450 / -450 -470 / -470 Weight 78.9 kg Intake: Oral 600 / 600 480 / 480 630 / 630 Intake (Blood Product) Amt 800 / 800 Rbc As-3 Leukoreduced Unit 400 / 400 [id number] Rbc As-3 Leukoreduced Unit 400 / 400 [id number] Output: Urine 900 / 900 900 / 900 1100 / 1100 Chest Tube Drainage 60 60 / 30 #1Y and #2Y Mediastinal 60 60 / 30 Other: # Voids 3 Date of Last Bowel Movement 05/17/18 # Bowel Movements 3 Result Diagrams: 05/20/18 04:23 05/19/18 05:20 Laboratory Results: Laboratory Results - last 24 hr 05/16/18 05/16/18 05/16/18 15:10 17:40 17:40 WBC RBC Hgb Hct MCV MCH MCHC RDW Plt Count MPV Smear Path Review Haptoglobin PT INR APTT Fibrinogen Sodium Potassium Chloride Carbon Dioxide Anion Gap BUN Creatinine Estimated GFR POC Glucose Random Glucose Calcium Magnesium Total Bilirubin Direct Bilirubin Indirect Bilirubin AST ALT Alkaline Phosphatase Lactate Dehydrogenase Total Protein Albumin Vitamin B12 207 Folate 11.9 Heparin Dep Plt Ab OD 0.281 Hep-Induced Plt Ab Mitali Negative 05/16/18 05/16/18 05/16/18 17:40 17:40 17:40 WBC 7.9 RBC 2.90 L Hgb 9.6 L D Hct 27.3 L MCV 94.1 D MCH 33.1 MCHC 35.2 RDW 17.8 H D Plt Count 120 L D MPV 9.2 Smear Path Review Haptoglobin 202 H PT 10.3 INR 1.0 APTT 24.5 Fibrinogen 440 H Sodium Potassium Chloride Carbon Dioxide Anion Gap BUN Creatinine Estimated GFR POC Glucose Random Glucose Calcium Magnesium Total Bilirubin 0.7 Direct Bilirubin 0.2 Indirect Bilirubin 0.5 AST 15 ALT 8 L Alkaline Phosphatase 64 Lactate Dehydrogenase 179 Total Protein 5.6 L Albumin 2.5 L Vitamin B12 Folate Heparin Dep Plt Ab OD Hep-Induced Plt Ab Mitali 05/16/18 05/16/18 05/17/18 17:40 20:58 05:20 WBC 5.3 RBC 2.60 L Hgb 8.6 L Hct 24.3 L MCV 93.4 MCH 33.2 MCHC 35.5 RDW 18.1 H Plt Count 103 L MPV 9.4 Smear Path Review Haptoglobin PT INR APTT Fibrinogen Sodium Potassium Chloride Carbon Dioxide Anion Gap BUN Creatinine Estimated GFR POC Glucose 164 H Random Glucose Calcium Magnesium Total Bilirubin Cancelled Direct Bilirubin Cancelled Indirect Bilirubin Cancelled AST Cancelled ALT Cancelled Alkaline Phosphatase Cancelled Lactate Dehydrogenase Total Protein Cancelled Albumin Cancelled Vitamin B12 Folate Heparin Dep Plt Ab OD Hep-Induced Plt Ab Mitali 05/17/18 05/17/18 05/17/18 05:20 07:44 11:45 WBC RBC Hgb Hct MCV MCH MCHC RDW Plt Count MPV Smear Path Review Haptoglobin PT INR APTT Fibrinogen Sodium 140 Potassium 4.1 Chloride 106 Carbon Dioxide 29.0 Anion Gap 5 BUN 14 Creatinine 0.93 Estimated GFR 59 L POC Glucose 158 H 131 H Random Glucose 134 H Calcium 8.1 L Magnesium 1.9 Total Bilirubin 0.4 Direct Bilirubin Indirect Bilirubin AST 14 L ALT 6 L Alkaline Phosphatase 61 Lactate Dehydrogenase Total Protein 5.1 L Albumin 2.2 L Vitamin B12 Folate Heparin Dep Plt Ab OD Hep-Induced Plt Ab Mitali Imaging Studies: Impressions Venous Doppler Study 05/16/18 00:00 CONCLUSION: 1. Positive occlusive thrombus in the right posterior tibial vein. Remainder of the deep venous system on the right and left side is unremarkable. Venous Doppler Study 05/16/18 00:00 CONCLUSION: 1. No acute venous thrombosis identified. Left subclavian not visualized due to bandaging. Medications: Active Medications Generic Name Dose Route Start Last Admin Trade Name Freq PRN Reason Stop Dose Admin Hydrocodone Bitart/Acetaminophen 1 tab 05/14/18 12:08 05/17/18 11:25 [place] 5/325 PO 1 tab Q3H PRN Administration PAIN SCALE 1 TO 5 Al Hydroxide/Mg Hydroxide 30 ml 05/15/18 09:00 05/17/18 08:29 Milk Of Magnesia Liq PO 30 ml DAILY [facility] Administration Albuterol 1 ampul 05/14/18 12:08 05/16/18 21:40 Duoneb Neb (Prn) NEB 1 ampul Q2HR NEB PRN Administration WHEEZING Amiodarone HCl 200 mg 05/14/18 21:00 05/17/18 08:28 Cordarone PO 200 mg Q12HR [facility]AID Administration Aspirin 81 mg 05/15/18 09:00 05/16/18 08:55 Aspirin Chew PO Not Given DAILY [facility] Atorvastatin Calcium 40 mg 05/16/18 09:00 05/17/18 08:28 Lipitor PO 40 mg DAILY [facility] Administration Clopidogrel Bisulfate 75 mg 05/15/18 09:00 05/16/18 08:58 Plavix PO Not Given DAILY [facility] Sodium Chloride 77.5 ml/ 0 ml 05/14/18 06:15 05/14/18 09:44 Papaverine HCl 60 mg/ IRRIGATION 05/20/18 06:15 50 bag Nitroglycerin 100 mcg/ COMBER SETTER [facility] Administration Diltiazem HCl 100 mg Sodium Chloride 500 ml/ 0 ml 05/14/18 06:15 05/14/18 09:46 Cefazolin Sodium 500 mg IRRIGATION 05/20/18 06:15 500 [email or web address] COMBER SETTER [facility] Administration Docusate Sodium 100 mg 05/15/18 21:00 05/17/18 08:28 Colace PO 100 mg BID [facility] Administration Sodium Chloride 500 mls @ 30 mls/hr 05/14/18 07:00 05/14/18 07:23 Ns Inj IV.SIG Not Given .Q10H [facility] Insulin Aspart 0 unit 05/16/18 12:00 05/17/18 18:02 Novolog Insulin Correctional Sugar Inj SQ Not Given [facility] Protocol Insulin Detemir 10 unit 05/15/18 21:00 05/17/18 08:28 Levemir Inj SQ 10 unit BID [facility] Administration Metformin HCl 500 mg 05/15/18 18:00 05/16/18 17:44 Glucophage PO 500 mg BIDPC [facility] Administration Metoprolol Tartrate 12.5 mg 05/14/18 05:00 05/15/18 09:12 Lopressor PO 05/20/18 06:15 12.5 mg COMBER SETTER [facility] Administration Metoprolol Tartrate 25 mg 05/15/18 09:00 05/17/18 08:28 Lopressor PO 25 mg BID [facility] Administration Multivitamins/Minerals 1 tab 05/15/18 09:00 05/17/18 08:28 Theragran-M PO 1 tab DAILY [facility] Administration Mupirocin 1 applicatio 05/14/18 09:00 05/17/18 08:28 Bactroban 2% Nasal Oint EACH NARE 05/18/18 06:15 Not Given BID [facility] Ondansetron HCl 4 mg 05/14/18 12:08 05/17/18 08:29 Zofran Inj IV.PUSH 4 mg Q6H PRN Administration NAUSEA OR VOMITING Pantoprazole Sodium 40 mg 05/15/18 06:00 05/17/18 05:02 Protonix PO 40 mg DAILY@06 [facility] Administration Polyethylene Glycol 17 gm 05/16/18 09:00 05/17/18 08:29 Miralax PO 17 gm DAILY [facility] Administration Sennosides 8.6 mg 05/15/18 21:00 05/16/18 21:10 Senokot PO 8.6 mg HS [facility] Administration Sodium Chloride 2 ml 05/14/18 09:00 05/17/18 08:29 Ns Flush IV.FLUSH 2 ml BID [facility] Administration Objective Remarks: GENERAL: Well-nourished, well-developed patient. SKIN: Warm and dry. HEAD: Normocephalic. EYES: No scleral icterus. No injection or drainage. NECK: Supple, trachea midline. No JVD or lymphadenopathy. LYMPHATIC: No adenopathy. CARDIOVASCULAR: Regular rate and rhythm without murmurs. RESPIRATORY: Breath sounds equal bilaterally. No accessory muscle use. GASTROINTESTINAL: Abdomen soft, non-tender, nondistended. EXTREMITIES: No cyanosis, or edema. MUSCULOSKELETAL: Adequate muscle tone. NEUROLOGICAL: No obvious focal deficit. Awake, alert, and oriented x3. PSYCHIATRIC: Appropriate mood and affect; insight and judgment normal. Assessment/Plan - Plan 1. Right posterior tibial vein thrombosis: no clinical swelling, patient does report right leg pain. Will start heparin gtt. Provoked due to hospitalization and surgery. 3 months of anticoagulation. Case discussed with Dr. Hunt Discussed risks/benefits of anticoagulation with patient. 2. TCP: stable after transfusion. No sign of DIC, TMA, ITP. HIT negative. ERUM pending. Will continue to trend counts. 3. Stage II cervical cancer: s/p concurrent cisplatin and radiation therapy.
[2018-05-17 20:26] LABS: Activated Partial Thrombo Time 28.2 sec (23.4-31.7)
[2018-05-17] MEDS ORDERED: Amiodarone Inj 150 MG in Dextrose 5% in Water Inj 97 ML IV.SIG ONE ×2 (21:00)
[2018-05-17] MEDS: Heparin Drip 25,000 UNIT/250 ML BAG IV.CONT PRN (21:57)
[2018-05-18] MEDS ORDERED: Heparin 10,000 UNITS/10 ML Vial (for IV use) IV.PUSH PRN (00:10)
[2018-05-18 04:05] LABS: Hematocrit 25.3 % (35.0-46.0); Hemoglobin 8.8 gm/dL (11.6-15.3); Mean Corpuscular HGB Conc 34.7 % (32.0-36.0); Mean Corpuscular Hemoglobin 32.8 pg (27.0-34.0); Mean Corpuscular Volume 94.5 fL (80.0-100.0); Mean Platelet Volume 8.7 fL (7.0-11.0); Platelet Count 129 th/mm3 (150-450); Red Blood Count 2.67 mil/mm3 (4.00-5.30); Red Cell Distribution Width 16.8 % (11.6-17.2); White Blood Count 5.3 th/mm3 (4.0-11.0)
[2018-05-18 04:36] LABS: Carbon Dioxide 30.2 meq/L (21.0-32.0); Magnesium 1.9 mg/dL (1.5-2.5); Potassium 4.1 meq/L (3.5-5.1)
--- NOTE | 2018-05-18 06:18 | XR ---
EXAM DATE: 05/18/2018 5:29 AM EST AGE/SEX: 72 years / Female INDICATIONS: Shortness of breath, possible pneumothorax. CLINICAL DATA: This is the patient's subsequent encounter. Patient reports that signs and symptoms h ave been present for 4 - 6 days and indicates a pain score of 3/10. MEDICAL/SURGICAL HISTORY: Arthritis. Diabetes. Hypercholesterolemia. Hypothyroidism. Hyperte nsion. PVD. Stroke. Cholecystectomy. Carotid endarterectomy. COMPARISON: [facility] [place], CHEST 1V SINGLE AP, 05/15/2018. . FINDINGS: Portable AP view of the chest demonstrates cardiac silhouette size at the upper limits for normal in this patient post median sternotomy. Right chest wall [id number] is present with distal tip in the SVC. Lungs are underinflated and there are bibasilar small pleural-parenchymal opacities, left great er than right. The left chest tube and mediastinal drain has been removed. No pneumothorax is visuali zed. CONCLUSION: 1. No pneumothorax is visualized. 2. Stable small bibasilar opacities characteristic of pleural effusions with associated atelectasis and/or consolidation. Electronically signed by: Alpesh Esparza MD 05/18/2018 6:16 AM EST
--- NOTE | 2018-05-18 08:53 | P.PNCV ---
- Note Subjective/Hospital Course: 72-year-old patient of Dr. Alpesh Matos, Dr. Markell Chun and Dr. Echavarria, initially seen 01/07/18 who has quite an extensive history, but had been complaining of some chest pain off and on for about 6 months. He had a recent nuclear stress test that showed small to moderate stress-induced inferior lateral wall ischemia. Cardiology was consulted at that time. During the course of that admission, she apparently had some vision loss in her right eye and went to her surgery attendant who sent her directly to the hospital. That was in October and she underwent a complete workup which showed 50-69% stenosis of both carotid arteries. 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 She underwent right carotid endarterectomy with patch angioplasty on 11/06/2017 and has been followed as an outpatient by her surgery attendant receiving injections of Avastin once a month to that right eye. In the meantime, she also had developed some vaginal spotting which started in April 2017, was initially seen by Urology and had a negative cystoscopy; however, due to the continuation of her vaginal bleeding , she underwent cervical biopsies, which showed a stage II cervical adenocarcinoma. Apparently the tumor has replaced the cervix and has extended into the parametrial tissue and proximal vaginal bilaterally. No tumor extension into the pelvic sidewalls. She received her Infusaport and has followed with Dr. Carias for radiation and chemotherapy with cisplatin by Dr. Rodriguez. She underwent evaluation of the chest pain and underwent cardiac catheterization, which showed left main disease 10% proximal, LAD 70%, the OM had 80% stenosis and the RCA 95%. The EF was 55%. We were consulted at that time to evaluate for coronary artery bypass grafting. PAST MEDICAL HISTORY: Includes carotid artery disease, stage II cervical adenocarcinoma, diabetes mellitus type 2, coronary artery disease chronic disease stage II, hyperlipidemia, hypertension, history of kidney stones, history of recent cerebrovascular accident with a right retinal artery embolism, cataracts. PAST SURGICAL HISTORY: Right carotid endarterectomy 11/06/2016, cataract surgery bilateral, cholecystectomy, cystectomy, left hip surgery, colonoscopy. She was seen again [facility] with Dr Hunt 04/30/18, she has since undergone recent therapy of her cervical cancer with completion of the treatment 05/14 pt electively admitted for surgery 1. Off-pump Coronary Artery Bypass Grafting x 3 with Left Internal Mammary Artery (PAPPAS) to Left Anterior Descending (LAD), reverse saphenous vein graft to obtuse Marginal branch of the left Circumflex artery, reverse saphenous vein graft to the posterior Descending branch of the right Coronary artery 2. Left leg Endoscopic Vein [place] 3. Intraoperative Vein Mapping. 3500cc crystalloid , 240cc cell saver, 500cc EBL 05/15 pt up in chair mag replaced 1.5 hgb 7.5/ monitor / recheck labs in am continue amiodarone levemir to wean off insulin was o tresiba at home transfer to stepdown global st elevation / probable pericarditis / will monitor 05/16 pt with worsening post blood loss anemia , HGB 6.4, PLT count 5?? s/p 2 units PRBC and one pk plt hematology consulted, HIT panel will leave chest tubes in 05/17 appreciate input from Heme HGB and plt improved post transfusion HIT panel neg / serotonin assay pending chest tube and cvc line dc still await further Heme workup labs 05/[address] Clin[address] Apprec[address] Dr. Diaz's input Platelets remained stable on heparin drip for DVT Discharge planning Objective: Vital Signs - 24 hr 05/17/18 09:00 05/17/18 09:09 05/17/18 10:00 Temperature Pulse Rate 85 76 Respiratory Rate 18 Blood Pressure Pulse Oximetry 05/17/18 11:00 05/17/18 11:51 05/17/18 12:00 Temperature 98.0 F Pulse Rate 82 72 Respiratory Rate 18 18 Blood Pressure 107/56 L Pulse Oximetry 92 L 05/17/18 13:00 05/17/18 14:00 05/17/18 15:00 Temperature Pulse Rate 77 84 75 Respiratory Rate Blood Pressure Pulse Oximetry 05/17/18 16:00 05/17/18 17:00 05/17/18 17:59 Temperature 98.6 F Pulse Rate 76 80 82 Respiratory Rate 18 Blood Pressure 153/65 H Pulse Oximetry 95 05/17/18 19:00 05/17/18 20:00 05/17/18 20:51 Temperature 97.7 F Pulse Rate 81 83 Respiratory Rate 18 Blood Pressure 145/65 H Pulse Oximetry 94 L 98 05/17/18 21:00 05/17/18 22:00 05/17/18 23:00 Temperature Pulse Rate 136 H 122 H 124 H Respiratory Rate Blood Pressure Pulse Oximetry 05/18/18 00:00 05/18/18 01:00 05/18/18 02:00 Temperature 98 F Pulse Rate 113 H 75 71 Respiratory Rate 18 Blood Pressure 111/59 L Pulse Oximetry 94 L 05/18/18 03:00 05/18/18 03:17 05/18/18 04:00 Temperature 98 F Pulse Rate 69 69 64 Respiratory Rate 18 18 Blood Pressure 102/52 L Pulse Oximetry 94 L 05/18/18 05:00 05/18/18 05:59 05/18/18 07:00 Temperature Pulse Rate 65 66 64 Respiratory Rate Blood Pressure Pulse Oximetry 05/18/18 08:00 Temperature Pulse Rate Respiratory Rate Blood Pressure Pulse Oximetry 96 Labs: Laboratory Results - last 12 hr 05/18/18 05/18/18 05/18/18 03:40 03:40 03:40 WBC 5.3 RBC 2.67 L Hgb 8.8 L Hct 25.3 L MCV 94.5 MCH 32.8 MCHC 34.7 RDW 16.8 Plt Count 129 L MPV 8.7 APTT 93.8 H* D Sodium 141 Potassium 4.1 Chloride 106 Carbon Dioxide 30.2 Anion Gap 5 BUN 15 Creatinine 0.92 Estimated GFR 60 L Random Glucose 116 H Calcium 8.0 L Magnesium 1.9 05/18/18 07:50 WBC RBC Hgb Hct MCV MCH MCHC RDW Plt Count MPV APTT 89.6 H Sodium Potassium Chloride Carbon Dioxide Anion Gap BUN Creatinine Estimated GFR Random Glucose Calcium Magnesium Result Diagrams: 05/18/18 03:40 05/18/18 03:40 - Plan (3) S/P CABG x 3 Plan: resume ASA, plavix for now w hematology consult pulm toielting OOB as tolerated, chest tubes dc (7) Pancytopenia Plan: Heme following continue to hold plavix monitor labs
[2018-05-18] MEDS: Insulin NovoLOG Aspart Correctional Sugar Inj SQ SCH ×4 (09:48→22:02)
[2018-05-18] MEDS: Multivitamin/Minerals Therapeutic Tablet PO SCH (09:48)
[2018-05-18] MEDS: Insulin Detemir Inj 1,000 UNIT/10 ML Vial SQ SCH ×2 (09:49→22:02)
[2018-05-18] MEDS: Docusate Sodium 100 MG Capsule PO SCH ×2 (09:49→22:05)
[2018-05-18] MEDS: Polyethylene Glycol 3350 17 GM Packet PO SCH (09:51)
[2018-05-18] MEDS: Metoprolol Tartrate 25 MG Tablet PO SCH ×2 (09:51→20:42)
--- NOTE | 2018-05-18 11:36 | P.PNONC ---
Subjective Interval history: Afebrile Patient sitting up in chair at bedside watching TV in no acute distress reports she has pain in her right vasquez area Surgical pain well controlled as long as she remains still No bleeding Objective Vital Signs/Intake & Output: Vital Signs 05/17/18 11:51 05/17/18 12:00 05/17/18 13:00 Temperature 98.0 F Pulse Rate 72 77 Respiratory Rate 18 18 Blood Pressure 107/56 L Pulse Oximetry 92 L 05/17/18 14:00 05/17/18 15:00 05/17/18 16:00 Temperature 98.6 F Pulse Rate 84 75 76 Respiratory Rate 18 Blood Pressure 153/65 H Pulse Oximetry 95 05/17/18 17:00 05/17/18 17:59 05/17/18 19:00 Temperature Pulse Rate 80 82 81 Respiratory Rate Blood Pressure Pulse Oximetry 05/17/18 20:00 05/17/18 20:51 05/17/18 21:00 Temperature 97.7 F Pulse Rate 83 136 H Respiratory Rate 18 Blood Pressure 145/65 H Pulse Oximetry 94 L 98 05/17/18 22:00 05/17/18 23:00 05/18/18 00:00 Temperature 98 F Pulse Rate 122 H 124 H 113 H Respiratory Rate 18 Blood Pressure 111/59 L Pulse Oximetry 94 L 05/18/18 01:00 05/18/18 02:00 05/18/18 03:00 Temperature Pulse Rate 75 71 69 Respiratory Rate Blood Pressure Pulse Oximetry 05/18/18 03:17 05/18/18 04:00 05/18/18 05:00 Temperature 98 F Pulse Rate 69 64 65 Respiratory Rate 18 18 Blood Pressure 102/52 L Pulse Oximetry 94 L 05/18/18 05:59 05/18/18 07:00 05/18/18 08:00 Temperature 98.2 F Pulse Rate 66 64 83 Respiratory Rate 18 Blood Pressure 144/64 H Pulse Oximetry 94 L 05/18/18 09:00 05/18/18 10:00 Temperature Pulse Rate 62 66 Respiratory Rate Blood Pressure Pulse Oximetry Intake & Output 05/17/18 05/18/18 05/18/18 18:59 06:59 18:59 Intake Total 630 / 630 580 / 580 Output Total 1100 / 1100 500 / 500 Balance -470 / -470 80 / 80 Weight 171 lb 11.841 oz Intake: IV 100 / 100 Cordarone Inj 150 MG In D5W Inj 100 / 100 97 ML @ 600 mls/hr IV.SIG ONCE ONE Rx#:[id number] Oral 630 / 630 480 / 480 Output: Urine 1100 / 1100 500 / 500 Other: Date of Last Bowel Movement 05/17/18 05/18/18 # Bowel Movements 3 Result Diagrams: 05/18/18 03:40 05/18/18 03:40 Laboratory Results: Laboratory Results - last 24 hr 05/17/18 05/17/18 05/17/18 11:45 19:15 19:38 WBC RBC Hgb Hct MCV MCH MCHC RDW Plt Count MPV PT 10.0 INR 1.0 APTT 28.2 Sodium Potassium Chloride Carbon Dioxide Anion Gap BUN Creatinine Estimated GFR POC Glucose 131 H 239 H Random Glucose Calcium Magnesium 05/18/18 05/18/18 05/18/18 03:40 03:40 03:40 WBC 5.3 RBC 2.67 L Hgb 8.8 L Hct 25.3 L MCV 94.5 MCH 32.8 MCHC 34.7 RDW 16.8 Plt Count 129 L MPV 8.7 PT INR APTT 93.8 H* D Sodium 141 Potassium 4.1 Chloride 106 Carbon Dioxide 30.2 Anion Gap 5 BUN 15 Creatinine 0.92 Estimated GFR 60 L POC Glucose Random Glucose 116 H Calcium 8.0 L Magnesium 1.9 05/18/18 07:50 WBC RBC Hgb Hct MCV MCH MCHC RDW Plt Count MPV PT INR APTT 89.6 H Sodium Potassium Chloride Carbon Dioxide Anion Gap BUN Creatinine Estimated GFR POC Glucose Random Glucose Calcium Magnesium Imaging Studies: Impressions Chest X-Ray 05/18/18 06:00 CONCLUSION: 1. No pneumothorax is visualized. 2. Stable small bibasilar opacities characteristic of pleural effusions with associated atelectasis and/or consolidation. Medications: Active Medications Generic Name Dose Route Start Last Admin Trade Name Freq PRN Reason Stop Dose Admin Hydrocodone Bitart/Acetaminophen 1 tab 05/14/18 12:08 05/18/18 08:09 [place] 5/325 PO 1 tab Q3H PRN Administration PAIN SCALE 1 TO 5 Al Hydroxide/Mg Hydroxide 30 ml 05/15/18 09:00 05/18/18 09:51 Milk Of Magnesia Liq PO Not Given DAILY ZAID Albuterol 1 ampul 05/14/18 12:08 05/16/18 21:40 Duoneb Neb (Prn) NEB 1 ampul Q2HR NEB PRN Administration WHEEZING Amiodarone HCl 200 mg 05/14/18 21:00 05/17/18 20:57 Cordarone PO Not Given Q12HR ZAID Aspirin 81 mg 05/15/18 09:00 05/18/18 09:49 Aspirin Chew PO 81 mg DAILY ZAID Administration Atorvastatin Calcium 40 mg 05/16/18 09:00 05/18/18 09:49 Lipitor PO 40 mg DAILY ZAID Administration Clopidogrel Bisulfate 75 mg 05/15/18 09:00 05/16/18 08:58 Plavix PO Not Given DAILY ZAID Sodium Chloride 77.5 ml/ 0 ml 05/14/18 06:15 05/14/18 09:44 Papaverine HCl 60 mg/ IRRIGATION 05/20/18 06:15 50 bag Nitroglycerin 100 mcg/ CONSTRUCTION ENGINEER ZAID Administration Diltiazem HCl 100 mg Sodium Chloride 500 ml/ 0 ml 05/14/18 06:15 05/14/18 09:46 Cefazolin Sodium 500 mg IRRIGATION 05/20/18 06:15 500 irrig.soln [employer] ZAID Administration Cyanocobalamin 1,000 mcg 05/18/18 09:00 05/18/18 09:48 Vitamin B12 PO 1,000 mcg DAILY ZAID Administration Docusate Sodium 100 mg 05/15/18 21:00 05/18/18 09:49 Colace PO Not Given BID ZAID Sodium Chloride 500 mls @ 30 mls/hr 05/14/18 07:00 05/14/18 07:23 Ns Inj IV.SIG Not Given .Q10H ZAID Heparin Sodium/Dextrose 25,000 unit in 250 mls @ 14 mls/hr 05/17/18 18:04 07/05 04:56 Heparin/D5w 25,000 U/250 Ml IV.CONT 1,100 units/hr TITRATE PRN 11 mls/hr Per Protocol Titration Protocol 1,400 UNITS/HR Amiodarone HCl 450 mg/ 250 mls @ 33.33 mls/hr 05/17/18 21:15 05/18/18 03:10 Dextrose IV.CONT 0.5 mg/min TITRATE PRN 16.66 mls/hr Per Protocol Titration Protocol 1 MG/MIN Insulin Aspart 0 unit 05/16/18 12:00 05/18/18 09:48 Novolog Insulin Correctional Sugar Inj SQ Not Given ACHS [facility] Protocol Insulin Detemir 10 unit 05/15/18 21:00 05/18/18 09:49 Levemir Inj SQ 10 unit BID ZAID Administration Metformin HCl 500 mg 05/15/18 18:00 05/16/18 17:44 Glucophage PO 500 mg BIDPC ZAID Administration Metoprolol Tartrate 12.5 mg 05/14/18 05:00 05/15/18 09:12 Lopressor PO 05/20/18 06:15 12.5 mg [employer]STRUCTION ENGINE[employer] ZAID Administration Metoprolol Tartrate 25 mg 05/15/18 09:00 05/18/18 09:51 Lopressor PO 25 mg BID ZAID Administration Multivitamins/Minerals 1 tab 05/15/18 09:00 05/18/18 09:48 Theragran-M PO 1 tab DAILY ZAID Administration Ondansetron HCl 4 mg 05/14/18 12:08 05/17/18 08:29 Zofran Inj IV.PUSH 4 mg Q6H PRN Administration NAUSEA OR VOMITING Pantoprazole Sodium 40 mg 05/15/18 06:00 05/18/18 05:42 Protonix PO 40 mg DAILY@06 ZAID Administration Polyethylene Glycol 17 gm 05/16/18 09:00 05/18/18 09:51 Miralax PO Not Given DAILY ZAID Sennosides 8.6 mg 05/15/18 21:00 05/17/18 20:56 Senokot PO 8.6 mg HS ZAID Administration Sodium Chloride 2 ml 05/14/18 09:00 05/18/18 09:51 Ns Flush IV.FLUSH 2 ml BID ZAID Administration Objective Remarks: GENERAL: Older female sitting up in chair at bedside in no acute distress SKIN: Warm and dry. HEAD: Normocephalic. EYES: No scleral icterus. No injection or drainage. NECK: Supple, trachea midline. No JVD or lymphadenopathy. 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 No accessory muscle use. GASTROINTESTINAL: Abdomen soft, non-tender, nondistended. EXTREMITIES: Right lower extremity tenderness and edema MUSCULOSKELETAL: Generalized weakness NEUROLOGICAL: No obvious focal deficit. Awake, alert, and oriented x3. Assessment/Plan - Plan 1. Right posterior tibial vein thrombosis: Patient currently tolerating heparin drip. Her APTT is being monitored per protocol. I will obtain CBC today to evaluate platelet count. Continue heparin gtt. Thrombosis provoked due to hospitalization and surgery. Anticipate 3 months of anticoagulation. 2. TCP: stable after transfusion. No sign of DIC, TMA, ITP. HIT negative. ERUM pending. Will continue to trend counts. 3. Stage II cervical cancer: s/p concurrent cisplatin and radiation therapy. - Attending Statement The exam, history, and the medical decision-making described in the above note were completed with the assistance of the mid-level provider. I reviewed and agree with the findings presented. I attest that I had a [id number] encounter with the patient on the same day, and personally performed and documented my assessment and findings in the medical record. Patient sitting in chair watching football game. She has no bleeding. Her platelet counts of 229,000. Lower extremity edema has improved. She will continue heparin. Continue to monitor CBC.
--- NOTE | 2018-05-18 12:55 | ECG ---
Date Performed: 05/17/2018 Time Performed: 10:54:02 PTAGE: 72 years EKG: CONSIDER ACUTE ST ELEVATION MT Sinus rhythm . Anterolateral ST elevation, CONSIDER ACUTE INFARCT Abnormal ECG PREVIOUS TRACING :05/15/2018 @03.35 Compared to previous tracing,acute inferolateral MT and sabrina vation Clinical correlation is recommended DOCTOR: Kenji Garduno Interpretating Date/Time 05/18/2018 13:02:06
--- NOTE | 2018-05-18 14:55 | ECG ---
Date Performed: 05/17/2018 Time Performed: 10:54:02 PTAGE: 72 years EKG: CONSIDER ACUTE ST ELEVATION MA Sinus rhythm . Anterolateral ST elevation, CONSIDER ACUTE INFARCT Abnormal ECG PREVIOUS TRACING :05/15/2018 @03.35 Compared to previous tracing,acute inferolateral MA and sabrina vation Clinical correlation is recommended DOCTOR: Kenji Garduno Interpretating Date/Time 05/18/2018 14:54:30
[2018-05-18 16:03] LABS: Baso % (Auto) 0.6 % (0.0-2.0); Eos # (Auto) 0.2 th/mm3 (0.0-0.4); Eos % (Auto) 4.7 % (0.0-4.0); Hematocrit 28.5 % (35.0-46.0); Hemoglobin 9.6 gm/dL (11.6-15.3); Lymph # (Auto) 0.6 th/mm3 (1.0-4.8); Lymph % (Auto) 12.4 % (9.0-44.0); Mean Corpuscular HGB Conc 33.7 % (32.0-36.0); Mean Corpuscular Hemoglobin 32.6 pg (27.0-34.0); Mean Corpuscular Volume 96.5 fL (80.0-100.0); Mean Platelet Volume 8.3 fL (7.0-11.0); Mono # (Auto) 0.5 th/mm3 (0.0-0.9); Mono % (Auto) 10.4 % (0.0-8.0); Neut # (Auto) 3.7 th/mm3 (1.8-7.7); Neut % (Auto) 71.9 % (16.0-70.0); Platelet Count 162 th/mm3 (150-450); Red Blood Count 2.95 mil/mm3 (4.00-5.30); Red Cell Distribution Width 16.9 % (11.6-17.2); White Blood Count 5.1 th/mm3 (4.0-11.0)
[2018-05-18] MEDS: Heparin Drip 25,000 UNIT/250 ML BAG IV.CONT PRN (22:06)
[2018-05-19 05:36] LABS: Baso % (Auto) 0.6 % (0.0-2.0); Eos # (Auto) 0.2 th/mm3 (0.0-0.4); Eos % (Auto) 4.2 % (0.0-4.0); Hematocrit 26.7 % (35.0-46.0); Hemoglobin 8.9 gm/dL (11.6-15.3); Lymph # (Auto) 0.4 th/mm3 (1.0-4.8); Mean Corpuscular HGB Conc 33.5 % (32.0-36.0); Mean Corpuscular Hemoglobin 32.3 pg (27.0-34.0); Mean Corpuscular Volume 96.3 fL (80.0-100.0); Mean Platelet Volume 8.3 fL (7.0-11.0); Mono # (Auto) 0.5 th/mm3 (0.0-0.9); Mono % (Auto) 10.6 % (0.0-8.0); Neut # (Auto) 3.6 th/mm3 (1.8-7.7); Neut % (Auto) 75.6 % (16.0-70.0); Platelet Count 135 th/mm3 (150-450); Red Blood Count 2.77 mil/mm3 (4.00-5.30); Red Cell Distribution Width 16.6 % (11.6-17.2); White Blood Count 4.8 th/mm3 (4.0-11.0)
[2018-05-19 05:55] LABS: Albumin 2.3 g/dL (3.4-5.0); Anion Gap 6 meq/L (5-15); Aspartate Aminotransferase 16 U/L (15-37); Blood Urea Nitrogen 17 mg/dL (7-18); Calcium 8.4 mg/dL (8.5-10.1); Carbon Dioxide 28.1 meq/L (21.0-32.0); Chloride 107 meq/L (98-107); Glomerular Filtration Rate 56 mL/min (>89); Glucose,Random 56 mg/dL (74-106); Potassium 3.7 meq/L (3.5-5.1); Sodium 141 meq/L (136-145)
[2018-05-19 05:56] LABS: Alanine Aminotransferase 8 U/L (10-53)
[2018-05-19 05:58] LABS: Alkaline Phosphatase 61 U/L (45-117); Total Protein 5.7 g/dL (6.4-8.2)
[2018-05-19] MEDS: Insulin NovoLOG Aspart Correctional Sugar Inj SQ SCH ×4 (08:20→22:07)
[2018-05-19] MEDS: Metoprolol Tartrate 25 MG Tablet PO SCH ×3 (08:22→20:47)
[2018-05-19] MEDS: Insulin Detemir Inj 1,000 UNIT/10 ML Vial SQ SCH ×2 (08:22→22:07)
[2018-05-19] MEDS: Multivitamin/Minerals Therapeutic Tablet PO SCH (08:22)
[2018-05-19] MEDS: Docusate Sodium 100 MG Capsule PO SCH ×2 (08:22→20:45)
[2018-05-19] MEDS: Polyethylene Glycol 3350 17 GM Packet PO SCH (08:23)
--- NOTE | 2018-05-19 08:34 | P.PNCV ---
- Note Subjective/Hospital Course: 72-year-old patient of Dr. Alpesh Matos, Dr. Markell Chun and Dr. Echavarria, initially seen 01/07/18 who has quite an extensive history, but had been complaining of some chest pain off and on for about 6 months. He had a recent nuclear stress test that showed small to moderate stress-induced inferior lateral wall ischemia. Cardiology was consulted at that time. During the course of that admission, she apparently had some vision loss in her right eye and went to her model technician who sent her directly to the hospital. That was in October and she underwent a complete workup which showed 50-69% stenosis of both carotid arteries. 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 She underwent right carotid endarterectomy with patch angioplasty on 11/06/2017 and has been followed as an outpatient by her model technician receiving injections of Avastin once a month to that right eye. In the meantime, she also had developed some vaginal spotting which started in April 2017, was initially seen by Urology and had a negative cystoscopy; however, due to the continuation of her vaginal bleeding , she underwent cervical biopsies, which showed a stage II cervical adenocarcinoma. Apparently the tumor has replaced the cervix and has extended into the parametrial tissue and proximal vaginal bilaterally. No tumor extension into the pelvic sidewalls. She received her Infusaport and has followed with Dr. Carias for radiation and chemotherapy with cisplatin by Dr. Rodriguez. She underwent evaluation of the chest pain and underwent cardiac catheterization, which showed left main disease 10% proximal, LAD 70%, the OM had 80% stenosis and the RCA 95%. The EF was 55%. We were consulted at that time to evaluate for coronary artery bypass grafting. PAST MEDICAL HISTORY: Includes carotid artery disease, stage II cervical adenocarcinoma, diabetes mellitus type 2, coronary artery disease chronic disease stage II, hyperlipidemia, hypertension, history of kidney stones, history of recent cerebrovascular accident with a right retinal artery embolism, cataracts. PAST SURGICAL HISTORY: Right carotid endarterectomy 11/06/2016, cataract surgery bilateral, cholecystectomy, cystectomy, left hip surgery, colonoscopy. She was seen again in [facility] with Dr Hunt 04/30/18, she has since undergone recent therapy of her cervical cancer with completion of the treatment 05/14 pt electively admitted for surgery 1. Off-pump Coronary Artery Bypass Grafting x 3 with Left Internal Mammary Artery (PAPPAS) to Left Anterior Descending (LAD), reverse saphenous vein graft to obtuse Marginal branch of the left Circumflex artery, reverse saphenous vein graft to the posterior Descending branch of the right Coronary artery 2. Left leg Endoscopic Vein [place] 3. Intraoperative Vein Mapping. 3500cc crystalloid , 240cc cell saver, 500cc EBL 05/15 pt up in chair mag replaced 1.5 hgb 7.5/ monitor / recheck labs in am continue amiodarone levemir to wean off insulin was o tresiba at home transfer to stepdown global st elevation / probable pericarditis / will monitor 05/16 pt with worsening post blood loss anemia , HGB 6.4, PLT count 5?? s/p 2 units PRBC and one pk plt hematology consulted, HIT panel will leave chest tubes in 05/17 appreciate input from Heme HGB and plt improved post transfusion HIT panel neg / serotonin assay pending chest tube and cvc line dc still await further Heme workup labs 05/[address] Apprec[address]. Diaz's input Platelets remained stable on heparin drip for DVT Discharge planning 05/19 Clinical stable In normal sinus rhythm Switch IV amiodarone to p.o. Awaiting decision on anticoagulation. Presently on heparin drip.? Initiate Coumadin therapy Discharge planning Objective: Vital Signs - 24 hr 05/18/18 09:00 05/18/18 10:00 05/18/18 11:00 Temperature 98.3 F Pulse Rate 62 66 71 Respiratory Rate 18 Blood Pressure 132/60 Pulse Oximetry 95 05/18/18 12:00 05/18/18 13:00 05/18/18 14:00 Temperature Pulse Rate 68 68 70 Respiratory Rate Blood Pressure Pulse Oximetry 05/18/18 15:00 05/18/18 16:00 05/18/18 17:00 Temperature 98.6 F Pulse Rate 71 70 72 Respiratory Rate 18 Blood Pressure 116/58 L Pulse Oximetry 97 05/18/18 18:00 05/18/18 19:00 05/18/18 20:00 Temperature 98.4 F Pulse Rate 72 70 74 Respiratory Rate 16 Blood Pressure 168/75 H Pulse Oximetry 97 05/18/18 21:00 05/18/18 21:06 05/18/18 22:00 Temperature Pulse Rate 74 64 Respiratory Rate Blood Pressure Pulse Oximetry 98 05/18/18 22:04 05/18/18 23:00 05/19/18 00:00 Temperature 97.6 F Pulse Rate 60 68 Respiratory Rate 18 16 Blood Pressure 115/57 L Pulse Oximetry 96 05/19/18 01:00 05/19/18 02:00 05/19/18 03:00 Temperature 97.8 F Pulse Rate 58 L 61 66 Respiratory Rate 18 Blood Pressure 136/63 Pulse Oximetry 92 L 05/19/18 04:00 05/19/18 05:00 05/19/18 06:00 Temperature Pulse Rate 65 63 71 Respiratory Rate Blood Pressure Pulse Oximetry Labs: Laboratory Results - last 12 hr 05/18/18 05/18/18 05/19/18 20:53 22:32 05:09 WBC 4.8 RBC 2.77 L Hgb 8.9 L Hct 26.7 L MCV 96.3 MCH 32.3 MCHC 33.5 RDW 16.6 Plt Count 135 L MPV 8.3 Neut % (Auto) 75.6 H Lymph % (Auto) 9.0 [place] % (Auto) 10.6 H Eos % (Auto) 4.2 H Baso % (Auto) 0.6 Neut # (Auto) 3.6 Lymph # (Auto) 0.4 L [place] # (Auto) 0.5 Eos # (Auto) 0.2 Baso # (Auto) 0.0 WBC Differential . Differential Comment Auto diff final APTT 30.1 D Sodium Potassium Chloride Carbon Dioxide Anion Gap BUN Creatinine Estimated GFR POC Glucose 156 H Random Glucose Calcium Total Bilirubin AST ALT Alkaline Phosphatase Total Protein Albumin 05/19/18 05/19/18 05:20 07:43 WBC RBC Hgb Hct MCV MCH MCHC RDW Plt Count MPV Neut % (Auto) Lymph % (Auto) [place] % (Auto) Eos % (Auto) Baso % (Auto) Neut # (Auto) Lymph # (Auto) [place] # (Auto) Eos # (Auto) Baso # (Auto) WBC Differential Differential Comment APTT Sodium 141 Potassium 3.7 Chloride 107 Carbon Dioxide 28.1 Anion Gap 6 BUN 17 Creatinine 0.98 Estimated GFR 56 L POC Glucose 83 Random Glucose 56 L Calcium 8.4 L Total Bilirubin 0.3 AST 16 ALT 8 L Alkaline Phosphatase 61 Total Protein 5.7 L D Albumin 2.3 L Result Diagrams: 05/19/18 05:09 05/19/18 05:20 - Plan (3) S/P CABG x 3 Plan: resume ASA, plavix for now w hematology consult pulm toielting OOB as tolerated, chest tubes dc (7) Pancytopenia Plan: Heme following continue to hold plavix monitor labs
[2018-05-19] MEDS ORDERED: Amiodarone 200 MG Tablet PO ONE (10:15)
--- NOTE | 2018-05-19 11:15 | P.PNONC ---
Subjective Interval history: Afebrile Patient sitting in chair at bedside reading a book She denies any bleeding She is anxious to go to rehab Per RN they would like to transition to oral anticoagulation Objective Vital Signs/Intake & Output: Vital Signs 05/18/18 12:00 05/18/18 13:00 05/18/18 14:00 Temperature Pulse Rate 68 68 70 Respiratory Rate Blood Pressure Pulse Oximetry 05/18/18 15:00 05/18/18 16:00 05/18/18 17:00 Temperature 98.6 F Pulse Rate 71 70 72 Respiratory Rate 18 Blood Pressure 116/58 L Pulse Oximetry 97 05/18/18 18:00 05/18/18 19:00 05/18/18 20:00 Temperature 98.4 F Pulse Rate 72 70 74 Respiratory Rate 16 Blood Pressure 168/75 H Pulse Oximetry 97 05/18/18 21:00 05/18/18 21:06 05/18/18 22:00 Temperature Pulse Rate 74 64 Respiratory Rate Blood Pressure Pulse Oximetry 98 05/18/18 22:04 05/18/18 23:00 05/19/18 00:00 Temperature 97.6 F Pulse Rate 60 68 Respiratory Rate 18 16 Blood Pressure 115/57 L Pulse Oximetry 96 05/19/18 01:00 05/19/18 02:00 05/19/18 03:00 Temperature 97.8 F Pulse Rate 58 L 61 66 Respiratory Rate 18 Blood Pressure 136/63 Pulse Oximetry 92 L 05/19/18 04:00 05/19/18 05:00 05/19/18 06:00 Temperature Pulse Rate 65 63 71 Respiratory Rate Blood Pressure Pulse Oximetry 05/19/18 07:00 05/19/18 08:00 05/19/18 09:00 Temperature 98.0 F Pulse Rate 75 75 68 Respiratory Rate 20 Blood Pressure 141/67 H Pulse Oximetry 97 97 05/19/18 10:00 Temperature Pulse Rate 76 Respiratory Rate Blood Pressure Pulse Oximetry Intake & Output 05/18/18 05/19/18 05/19/18 18:59 06:59 18:59 Intake Total 1150 / 1150 1220 / 1220 Output Total 1025 / 1025 1500 / 1500 Balance 125 / 125 -280 / -280 Intake: IV 250 / 250 500 / 500 Cordarone Inj 450 MG In D5W Inj 250 / 250 250 / 250 241 ML @ 1 MG/MIN 33.33 mls/hr IV.CONT TITRATE PRN Rx#: [id number] Heparin/D5W 25,000 U/250 mL 25, 250 / 250 000 unit In 250 ml @ 1,400 UNITS/HR 14 mls/hr IV.CONT TITRATE PRN Rx#:[id number] Oral 900 / 900 720 / 720 Output: Urine 1025 / 1025 1500 / 1500 Other: Date of Last Bowel Movement 05/18/18 05/18/18 05/18/18 # Bowel Movements 2 Result Diagrams: 05/19/18 05:09 05/19/18 05:20 Laboratory Results: Laboratory Results - last 24 hr 05/18/18 05/18/18 05/18/18 11:29 15:51 15:51 WBC 5.1 RBC 2.95 L Hgb 9.6 L Hct 28.5 L MCV 96.5 MCH 32.6 MCHC 33.7 RDW 16.9 Plt Count 162 MPV 8.3 Neut % (Auto) 71.9 H Lymph % (Auto) 12.4 [place] % (Auto) 10.4 H Eos % (Auto) 4.7 H Baso % (Auto) 0.6 Neut # (Auto) 3.7 Lymph # (Auto) 0.6 L [place] # (Auto) 0.5 Eos # (Auto) 0.2 Baso # (Auto) 0.0 WBC Differential . Differential Comment Auto diff final APTT 51.2 H D Sodium Potassium Chloride Carbon Dioxide Anion Gap BUN Creatinine Estimated GFR POC Glucose 274 H Random Glucose Calcium Total Bilirubin AST ALT Alkaline Phosphatase Total Protein Albumin 05/18/18 05/18/18 05/18/18 16:49 20:53 22:32 WBC RBC Hgb Hct MCV MCH MCHC RDW Plt Count MPV Neut % (Auto) Lymph % (Auto) [place] % (Auto) Eos % (Auto) Baso % (Auto) Neut # (Auto) Lymph # (Auto) [place] # (Auto) Eos # (Auto) Baso # (Auto) WBC Differential Differential Comment APTT 30.1 D Sodium Potassium Chloride Carbon Dioxide Anion Gap BUN Creatinine Estimated GFR POC Glucose 76 156 H Random Glucose Calcium Total Bilirubin AST ALT Alkaline Phosphatase Total Protein Albumin 05/19/18 05/19/18 05/19/18 05:09 05:20 07:43 WBC 4.8 RBC 2.77 L Hgb 8.9 L Hct 26.7 L MCV 96.3 MCH 32.3 MCHC 33.5 RDW 16.6 Plt Count 135 L MPV 8.3 Neut % (Auto) 75.6 H Lymph % (Auto) 9.0 [place] % (Auto) 10.6 H Eos % (Auto) 4.2 H Baso % (Auto) 0.6 Neut # (Auto) 3.6 Lymph # (Auto) 0.4 L [place] # (Auto) 0.5 Eos # (Auto) 0.2 Baso # (Auto) 0.0 WBC Differential . Differential Comment Auto diff final APTT Sodium 141 Potassium 3.7 Chloride 107 Carbon Dioxide 28.1 Anion Gap 6 BUN 17 Creatinine 0.98 Estimated GFR 56 L POC Glucose 83 Random Glucose 56 L Calcium 8.4 L Total Bilirubin 0.3 AST 16 ALT 8 L Alkaline Phosphatase 61 Total Protein 5.7 L D Albumin 2.3 L 05/19/18 05/19/18 09:42 10:59 WBC RBC Hgb Hct MCV MCH MCHC RDW Plt Count MPV Neut % (Auto) Lymph % (Auto) [place] % (Auto) Eos % (Auto) Baso % (Auto) Neut # (Auto) Lymph # (Auto) [place] # (Auto) Eos # (Auto) Baso # (Auto) WBC Differential Differential Comment APTT 47.7 H D Sodium Potassium Chloride Carbon Dioxide Anion Gap BUN Creatinine Estimated GFR POC Glucose 220 H Random Glucose Calcium Total Bilirubin AST ALT Alkaline Phosphatase Total Protein Albumin Culture Results: Microbiology 05/18/18 13:13 Stool Occult Blood (OWEN) - Final Stool Hemoccult negative Medications: Active Medications Generic Name Dose Route Start Last Admin Trade Name Freq PRN Reason Stop Dose Admin Hydrocodone Bitart/Acetaminophen 1 tab 05/14/18 12:08 05/19/18 08:22 [place] 5/325 PO 1 tab Q3H PRN Administration PAIN SCALE 1 TO 5 Al Hydroxide/Mg Hydroxide 30 ml 05/15/18 09:00 05/19/18 08:22 Milk Of Magnesia Liq PO Not Given DAILY [facility] Albuterol 1 ampul 05/14/18 12:08 05/16/18 21:40 Duoneb Neb (Prn) NEB 1 ampul Q2HR NEB PRN Administration WHEEZING Amiodarone HCl 200 mg 05/14/18 21:00 05/17/18 20:57 Cordarone PO Not Given Q12HR [facility] Aspirin 81 mg 05/15/18 09:00 05/19/18 08:22 Aspirin Chew PO 81 mg DAILY [facility] Administration Atorvastatin Calcium 40 mg 05/16/18 09:00 05/19/18 08:22 Lipitor PO 40 mg DAILY [facility] Administration Clopidogrel Bisulfate 75 mg 05/15/18 09:00 05/16/18 08:58 Plavix PO Not Given DAILY [facility] Sodium Chloride 77.5 ml/ 0 ml 05/14/18 06:15 05/14/18 09:44 Papaverine HCl 60 mg/ IRRIGATION 05/20/18 06:15 50 bag Nitroglycerin 100 mcg/ [employer] [facility] Administration Diltiazem HCl 100 mg Sodium Chloride 500 ml/ 0 ml 05/14/18 06:15 05/14/18 09:46 Cefazolin Sodium 500 mg IRRIGATION 05/20/18 06:15 500 irrig.soln [employer] [facility] Administration Cyanocobalamin 1,000 mcg 05/18/18 09:00 05/19/18 08:22 Vitamin B12 PO 1,000 mcg DAILY [facility] Administration Docusate Sodium 100 mg 05/15/18 21:00 05/19/18 08:22 Colace PO 100 mg BID [facility] Administration Sodium Chloride 500 mls @ 30 mls/hr 05/14/18 07:00 05/14/18 07:23 Ns Inj IV.SIG Not Given .Q10H [facility] Heparin Sodium/Dextrose 25,000 unit in 250 mls @ 14 mls/hr 05/17/18 18:04 08/05 01:36 Heparin/D5w 25,000 U/250 Ml IV.CONT 1,000 units/hr TITRATE PRN 10 mls/hr Per Protocol Titration Protocol 1,400 UNITS/HR Insulin Aspart 0 unit 05/16/18 12:00 05/19/18 08:20 Novolog Insulin Correctional Sugar Inj SQ Not Given ACHS [facility] Protocol Insulin Detemir 10 unit 05/15/18 21:00 05/19/18 08:22 Levemir Inj SQ 10 unit BID [facility] Administration Metformin HCl 500 mg 05/15/18 18:00 05/16/18 17:44 Glucophage PO 500 mg BIDPC [facility] Administration Metoprolol Tartrate 12.5 mg 05/14/18 05:00 11/28/18 09:12 Lopressor PO 05/20/18 06:15 12.5 mg [employer] [facility] Administration Metoprolol Tartrate 25 mg 05/15/18 09:00 05/19/18 08:22 Lopressor PO 25 mg BID [facility] Administration Multivitamins/Minerals 1 tab 05/15/18 09:00 05/19/18 08:22 Theragran-M PO 1 tab DAILY [facility] Administration Ondansetron HCl 4 mg 05/14/18 12:08 05/18/18 20:42 Zofran Inj IV.PUSH 4 mg Q6H PRN Administration NAUSEA OR VOMITING Pantoprazole Sodium 40 mg 05/15/18 06:00 05/19/18 06:25 Protonix PO 40 mg DAILY@06 [facility] Administration Polyethylene Glycol 17 gm 05/16/18 09:00 05/19/18 08:23 Miralax PO Not Given DAILY [facility] Sennosides 8.6 mg 05/15/18 21:00 05/18/18 22:05 Senokot PO Not Given HS [facility] Sodium Chloride 2 ml 05/14/18 09:00 05/19/18 08:23 Ns Flush IV.FLUSH Not Given BID [facility] Sodium Chloride 2 ml 05/14/18 06:15 05/18/18 20:46 Ns Flush IV.FLUSH 2 ml PRN PRN Administration FLUSH AFTER USING IV ACCESS Objective Remarks: GENERAL: Older female sitting up in chair at bedside in no acute distress SKIN: Warm and dry. HEAD: Normocephalic. EYES: No scleral icterus. No injection or drainage. NECK: Supple, trachea midline. No JVD or lymphadenopathy. 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 No accessory muscle use. GASTROINTESTINAL: Abdomen soft, non-tender, nondistended. EXTREMITIES: Right lower extremity tenderness and edema MUSCULOSKELETAL: Generalized weakness NEUROLOGICAL: No obvious focal deficit. Awake, alert, and oriented x3. Assessment/Plan - Plan 1. Right posterior tibial vein thrombosis: Patient currently tolerating heparin drip. Her APTT is being monitored per protocol. We will likely transition to Eliquis this evening. Heparin drip will be stopped 1 hour prior to first dose of Eliquis. 2. Continue to monitor platelet count. ERUM remains pending. 3. Stage II cervical cancer: s/p concurrent cisplatin and radiation therapy. - Attending Statement The exam, history, and the medical decision-making described in the above note were completed with the assistance of the mid-level provider. I reviewed and agree with the findings presented. I attest that I had a [id number] encounter with the patient on the same day, and personally performed and documented my assessment and findings in the medical record. Patient is sitting up in chair. She has no chest pain or shortness of breath. She has no lower extremity tenderness. She denies any bleeding. Her blood counts are stable. She is tolerating heparin well. Plan to transition her to Eliquis later today.
[2018-05-19] MEDS: Amiodarone 200 MG Tablet PO SCH (20:45)
[2018-05-20 05:14] LABS: Baso % (Auto) 0.7 % (0.0-2.0); Eos # (Auto) 0.2 th/mm3 (0.0-0.4); Eos % (Auto) 4.9 % (0.0-4.0); Hemoglobin 9.2 gm/dL (11.6-15.3); Lymph # (Auto) 0.5 th/mm3 (1.0-4.8); Lymph % (Auto) 11.7 % (9.0-44.0); Mean Corpuscular HGB Conc 34.2 % (32.0-36.0); Mean Corpuscular Hemoglobin 32.8 pg (27.0-34.0); Mean Corpuscular Volume 95.9 fL (80.0-100.0); Mean Platelet Volume 8.8 fL (7.0-11.0); Mono # (Auto) 0.4 th/mm3 (0.0-0.9); Mono % (Auto) 10.4 % (0.0-8.0); Neut # (Auto) 2.8 th/mm3 (1.8-7.7); Neut % (Auto) 72.3 % (16.0-70.0); Platelet Count 153 th/mm3 (150-450); Red Blood Count 2.81 mil/mm3 (4.00-5.30); Red Cell Distribution Width 16.3 % (11.6-17.2); White Blood Count 3.9 th/mm3 (4.0-11.0)
[2018-05-20] MEDS: Amiodarone 200 MG Tablet PO SCH (09:01)
[2018-05-20] MEDS: Multivitamin/Minerals Therapeutic Tablet PO SCH (09:03)
[2018-05-20] MEDS: Insulin NovoLOG Aspart Correctional Sugar Inj SQ SCH ×2 (09:03→12:02)
[2018-05-20] MEDS: Insulin Detemir Inj 1,000 UNIT/10 ML Vial SQ SCH (09:03)
[2018-05-20] MEDS: Metoprolol Tartrate 25 MG Tablet PO SCH (09:03)
[2018-05-20] MEDS: Docusate Sodium 100 MG Capsule PO SCH (09:03)
[2018-05-20] MEDS: Polyethylene Glycol 3350 17 GM Packet PO SCH (09:04)
--- NOTE | 2018-05-20 12:06 | P.DS ---
Date of admission: 05/14/18 05:25 Primary care physician: Alpesh Matos Attending physician on discharge: Manjinder Hunt Anticipated date of discharge: 05/20/18 Brief History from admission: 72-year-old patient of Dr. Alpesh Matos, Dr. Markell Chun and Dr. Echavarria, initially seen 01/07/18 who has quite an extensive history, but had been complaining of some chest pain off and on for about 6 months. He had a recent nuclear stress test that showed small to moderate stress-induced inferior lateral wall ischemia. Cardiology was consulted at that time. During the course of that admission, she apparently had some vision loss in her right eye and went to her tobacco drying machine operator who sent her directly to the hospital. That was in October and she underwent a complete workup which showed 50-69% stenosis of both carotid arteries. 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 She underwent right carotid endarterectomy with patch angioplasty on 11/06/2017 and has been followed as an outpatient by her tobacco drying machine operator receiving injections of Avastin once a month to that right eye. In the meantime, she also had developed some vaginal spotting which started in April 2017, was initially seen by Urology and had a negative cystoscopy; however, due to the continuation of her vaginal bleeding , she underwent cervical biopsies, which showed a stage II cervical adenocarcinoma. Apparently the tumor has replaced the cervix and has extended into the parametrial tissue and proximal vaginal bilaterally. No tumor extension into the pelvic sidewalls. She received her Infusaport and has followed with Dr. Carias for radiation and chemotherapy with cisplatin by Dr. Rodriguez. She underwent evaluation of the chest pain and underwent cardiac catheterization, which showed left main disease 10% proximal, LAD 70%, the OM had 80% stenosis and the RCA 95%. The EF was 55%. We were consulted at that time to evaluate for coronary artery bypass grafting. PAST MEDICAL HISTORY: Includes carotid artery disease, stage II cervical adenocarcinoma, diabetes mellitus type 2, coronary artery disease chronic disease stage II, hyperlipidemia, hypertension, history of kidney stones, history of recent cerebrovascular accident with a right retinal artery embolism, cataracts. PAST SURGICAL HISTORY: Right carotid endarterectomy 11/06/2016, cataract surgery bilateral, cholecystectomy, cystectomy, left hip surgery, colonoscopy. Patient update on day of discharge: pt doing well, on room air PLT count 153K , HGB stable 9.2 stable to dc , on eliquis and ASA + DVT Right Leg: Occlusive thrombus in the right posterior tibial vein. Remainder of the right lower extremity veins appear patent. has f/u With Heme stable to dc DS: Diagnosis - Discharge Diagnosis (1) CAD (coronary artery disease), [place] coronary artery Status: Acute (2) Hx of cervical cancer Status: Acute (3) S/P CABG x 3 Status: Acute (4) Hyperlipidemia Status: Acute (5) Hypertension Status: Acute (6) Hypertension Status: Acute (7) Pancytopenia Status: Acute DS: Medications - Discharge Medications Prescriptions: acetaminophen-codeine [Tylenol-Codeine #3] 1 tab PO Q6H PRN #30 tab PRN Reason: Acute Pain DS: Summary Hospital Course: 05/14 pt electively admitted for surgery 1. Off-pump Coronary Artery Bypass Grafting x 3 with Left Internal Mammary Artery (PAPPAS) to Left Anterior Descending (LAD), reverse saphenous vein graft to obtuse Marginal branch of the left Circumflex artery, reverse saphenous vein graft to the posterior Descending branch of the right Coronary artery 2. Left leg Endoscopic Vein [place] 3. Intraoperative Vein Mapping. 3500cc crystalloid , 240cc cell saver, 500cc EBL 05/15 pt up in chair mag replaced 1.5 hgb 7.5/ monitor / recheck labs in am continue amiodarone levemir to wean off insulin was o tresiba at home transfer to stepdown global st elevation / probable pericarditis / will monitor 05/16 pt with worsening post blood loss anemia , HGB 6.4, PLT count 5?? s/p 2 units PRBC and one pk plt hematology consulted, HIT panel will leave chest tubes in 05/17 appreciate input from Heme HGB and plt improved post transfusion HIT panel neg / serotonin assay pending chest tube and cvc line dc still await further Heme workup labs 05/[address] Apprec[address] Diaz's input Platelets remained stable on heparin drip for DVT Discharge planning 05/19 Clinical stable In normal sinus rhythm Switch IV amiodarone to p.o. Awaiting decision on anticoagulation. Presently on heparin drip.? Initiate Coumadin therapy Discharge planning 05/20 transitioned to eliquis - Time Spent with Patient Total time spent providing and/or coordinating discharge services: Greater than 30 minutes - Quality: VTE Deep Vein Thrombosis/Pulmonary Embolism Present on Admission: No Exam Vital signs: Vital Signs 05/19/18 13:00 05/19/18 14:00 05/19/18 14:46 Temperature 96.8 F L Pulse Rate 65 71 73 Respiratory Rate 18 Blood Pressure 156/70 H Pulse Oximetry 98 05/19/18 15:00 05/19/18 16:00 05/19/18 17:00 Temperature Pulse Rate 65 73 75 Respiratory Rate Blood Pressure Pulse Oximetry 05/19/18 18:00 05/19/18 19:00 05/19/18 20:00 Temperature 98.1 F Pulse Rate 67 65 70 Respiratory Rate 18 Blood Pressure 127/60 Pulse Oximetry 97 05/19/18 20:41 05/19/18 21:00 05/19/18 22:00 Temperature Pulse Rate 70 68 Respiratory Rate 18 Blood Pressure Pulse Oximetry 05/19/18 23:00 05/20/18 00:00 05/20/18 01:00 Temperature 98.4 F Pulse Rate 75 68 74 Respiratory Rate 21 Blood Pressure 138/63 Pulse Oximetry 95 05/20/18 02:00 05/20/18 03:00 05/20/18 03:59 Temperature 98.3 F Pulse Rate 76 71 Respiratory Rate 16 18 Blood Pressure 153/67 H Pulse Oximetry 97 05/20/18 04:00 05/20/18 05:00 05/20/18 06:00 Temperature Pulse Rate 62 66 64 Respiratory Rate Blood Pressure Pulse Oximetry 05/20/18 07:00 05/20/18 08:00 05/20/18 09:00 Temperature 99.0 F Pulse Rate 66 74 74 Respiratory Rate 18 Blood Pressure 118/75 Pulse Oximetry 98 97 05/20/18 10:00 05/20/18 11:00 Temperature Pulse Rate 78 61 Respiratory Rate Blood Pressure Pulse Oximetry Intake & Output 05/19/18 05/20/18 05/20/18 18:59 06:59 18:59 Intake Total 800 / 800 240 / 240 Output Total 300 / 300 1100 / 1100 Balance 500 / 500 -860 / -860 Weight 80 kg Intake: IV 80 / 80 Cordarone Inj 450 MG In D5W Inj 80 / 80 241 ML @ 1 MG/MIN 33.33 mls/hr IV.CONT TITRATE PRN Rx#: [id number] Oral 720 / 720 240 / 240 Output: Urine 300 / 300 1100 / 1100 Other: # Voids 3 5 Date of Last Bowel Movement 05/19/18 05/18/18 05/19/18 # Bowel Movements 1 - Constitutional no acute distress - Routine HEENT Exam Head: Present: normocephalic, atraumatic - Routine Neck Exam Present: supple, full ROM - Routine Chest/Breast/Axilla Exam Chest wall: Present: tenderness - Routine Respiratory Exam Present: CTA bilaterally - Routine Cardiovascular Exam Present: RRR, S1, S2 - Routine Abdominal Exam Present: soft, normoactive bowel sounds - Routine Extremities Exam Present: pulses intact, normal capillary refill - Routine Skin Exam Present: intact Comments: sternal incision intact and well approximated - Routine Neurological Exam Present: alert, oriented X3, CN II-XII intact Results Procedures completed during hospitalization: Date of procedure: 05/14/18 Anesthesia: GETA Surgeon: Manjinder Hunt MD Operation and Findings: PREPROCEDURE DIAGNOSES 1. Severe Multi Vessel Coronary Artery Disease. 2. Cervical cancer status post radiation therapy POSTPROCEDURE DIAGNOSES Same SURGICAL PROCEDURE 1. Off-pump Coronary Artery Bypass Grafting x 3 with Left Internal Mammary Artery (PAPPAS) to Left Anterior Descending (LAD), reverse saphenous vein graft to obtuse Marginal branch of the left Circumflex artery, reverse saphenous vein graft to the posterior Descending branch of the right Coronary artery 2. Left leg Endoscopic Vein [place] 3. Intraoperative Vein Mapping. Labs on day of discharge: Labs from last 24 hours 05/20/18 05/20/18 05/20/18 11:55 08:51 04:23 WBC 3.9 L RBC 2.81 L Hgb 9.2 L Hct 27.0 L MCV 95.9 MCH 32.8 MCHC 34.2 RDW 16.3 Plt Count 153 MPV 8.8 Neut % (Auto) 72.3 H Lymph % (Auto) 11.7 [place] % (Auto) 10.4 H Eos % (Auto) 4.9 H Baso % (Auto) 0.7 Neut # (Auto) 2.8 Lymph # (Auto) 0.5 L [place] # (Auto) 0.4 Eos # (Auto) 0.2 Baso # (Auto) 0.0 WBC Differential . Differential Comment Auto diff final APTT POC Glucose 223 H 196 H 05/19/18 05/19/18 05/19/18 21:25 17:37 15:53 WBC RBC Hgb Hct MCV MCH MCHC RDW Plt Count MPV Neut % (Auto) Lymph % (Auto) [place] % (Auto) Eos % (Auto) Baso % (Auto) Neut # (Auto) Lymph # (Auto) [place] # (Auto) Eos # (Auto) Baso # (Auto) WBC Differential Differential Comment APTT 36.8 H D POC Glucose 197 H 94 - Impressions ITS Impressions Venous Doppler Study 05/16/18 00:00 CONCLUSION: 1. No acute venous thrombosis identified. Left subclavian not visualized due to bandaging. Chest X-Ray 05/18/18 06:00 CONCLUSION: 1. No pneumothorax is visualized. 2. Stable small bibasilar opacities characteristic of pleural effusions with associated atelectasis and/or consolidation. Carolina Jesus US venous doppler LE BI Signed EXAM DATE: 05/16/2018 8:25 PM EST AGE/SEX: 72 years / Female INDICATIONS: Bilateral leg pain. CLINICAL DATA: This is the patient's initial encounter. Patient reports that signs and symptoms have been present for 1 day and indicates a pain score of 2/ 10. MEDICAL/SURGICAL HISTORY: Arthritis. Hypertension. Hypothyroidism. Diabetes. Cervical cancer. Stroke. CABG. High Cholesterol. PAD. [place]. . Cholecystectomy. Carotid endarterectomy. Eye surgery. COMPARISON: [facility] [place], US VENOUS DOPPLER LEG BI, 01/07/2018. . TECHNIQUE: Venous ultrasound of both lower extremities was performed from the inguinal ligament to the proximal calf. Real-time, color Doppler and spectral tracing, compression and augmentation techniques were used. FINDINGS: Right Leg: Occlusive thrombus in the right posterior tibial vein. Remainder of the right lower extremity veins appear patent. Left Leg: Normal compression of the deep venous system from the inguinal region to the proximal calf. No echogenic clot is seen. Normal response of the venous system to augmentation and respiration. Other: None. Discharge Plan - Discharge Disposition Patient Disposition: Discharge to SNF - Discharge Condition Condition: Good - Discharge Details Anticipated Discharge Date: 05/20/18 - Physicians Team Primary Care Provider: Alpesh Matos Attending Provider: Manjinder Hunt Other Providers: Meaghan Fuchs,Shakira ; Carlene Diaz N - Rxs /Orders / Referrals /Forms Prescriptions: New acetaminophen-codeine [Tylenol-Codeine #3] 300-30 mg Tablet 1 tab PO Q6H PRN (Reason: Acute Pain) Qty: 30 RF: 0 amiodarone 200 mg Tablet 200 mg PO Q12HR Qty: 28 RF: 0 apixaban [Eliquis] 5 mg Tablet 5 mg PO BID RF: 0 aspirin 81 mg Tablet,Chewable 81 mg PO DAILY RF: 0 cyanocobalamin (vitamin B-12) [Vitamin B-12] 1,000 mcg Tablet 1,000 mcg PO DAILY RF: 0 docusate sodium [DOK] 100 mg Capsule 100 mg PO BID PRN (Reason: Constipation) RF: 0 metformin [Glucophage] 500 mg Tablet 500 mg PO BIDPC RF: 0 metoprolol tartrate 25 mg Tablet 25 mg PO BID RF: 0 polyethylene glycol 3350 17 gram Powder In Packet 17 gm PO DAILY RF: 0 Continue atorvastatin 40 mg Tablet 40 mg PO DAILY bevacizumab [Avastin] 25 mg/mL Solution 1 wk QMONTH insulin degludec [Tresiba FlexTouch U-100] 100 unit/mL (3 mL) Insulin Pen 32 unit SUB-Q HS lisinopril 20 mg Tablet 20 mg PO DAILY Discontinued amlodipine [Norvasc] 5 mg Tablet 5 mg PO DAILY Qty: 90 RF: 3 aspirin [Paras Aspirin] 325 mg Tablet 325 mg PO DAILY isosorbide mononitrate 30 mg Tablet Extended Release 24 Hr 30 mg PO DAILY metformin 1,000 mg Tablet 1,000 mg PO BID metoprolol tartrate 25 mg Tablet 12.5 mg PO BID Referrals: Tomeka Bautista [[facility] RN PRACTITIONER] - See Instructions ( Your appointment has been scheduled for [06/04/18] at [11:30 am] If you cannot make this appointment, please call the office to reschedule ) Alpesh Matos MD [Primary Care Provider] - See Instructions ( Your appointment has been scheduled for [06/05/18] at [2:20 pm] If you cannot make this appointment, please call the office to reschedule ) Markell Chun MD [Physician] - See Instructions ( Your appointment has been scheduled for [06/14/18] at [10:15 am] If you cannot make this appointment, please call the office to reschedule ) Carlene Diaz [Physician] - See Instructions - Discharge Instructions Patient Printed Instructions: Coronary Artery Bypass Graft (DC) Additional Instructions: PREVENA Single Use Negative Wound Therapy System Caregiver Instruction Sheet 1. A Prevena dressing system was applied to the chest incision during surgery , to promote wound healing. It works via a suction device (negative pressure wound therapy) to remove low to moderate levels of exudate (drainage) and infectious materials. We recommend that the device stay in place for up to seven days, from day of surgery. 2. Day of Surgery___/ Day of Removal ____/10/03 3. The dressing should only be removed by a health medicare compliance auditor. Please arrange removal of device to coincide with Home Health visit and or with Nursing staff at Rehab 4. If skin reddening or irritation of skin occurs, or excessive drainage, please notify the Cardiovascular Surgeons office at [phone]. 5. Light showering is permissible; however the pump should be disconnected and placed in safe location, where it will not get wet. The dressing should not be exposed to direct spray or submerged in water. No bath tub / shower only. Ensure the end of the tubing attached to the dressing is facing down so that water does not enter the top of the tube. 6. To remove Prevena dressing: press purple button to turn off device / remove the suction. Then disconnect the tubing from the pump. The fixation strips should be stretched away from the skin and the dressing lifted at one corner and peeled back until it has been fully removed. 7. After removal, it is ok to shower daily using liquid dial soap and clean wash cloth, rinse and pat dry, and leave incision open to air dry. For any concerns regarding Prevena dressing, and or wounds, please contact Rena Garcia, patient navigator at [phone] or notify the Cardiovascular Surgeons office at [phone]. Incentive spirometry Q1 hr x 10, while awake, also use acapella device hourly whole awake Sternal Breast Bone Precautions: NO pushing or pulling, ( pt must use sternal pillow to support chest with all activities and with coughing ( takes up to 3 months breast bone to heal ) All females to wear sternal bra , launder as needed Daily incision care: ok to shower daily, no tub bath. Wash all incisions with liquid dial soap, clean wash cloth to each site, rinse and pat dry. Observe for any signs of infection, such as drainage which is dark yellow, abarca, green or foul smelling. Immediately report to the surgeon any drainage from the chest incision, or legs, and for any abnormal drainage from the chest tube sites. Notify surgeon if any temp >101.5 degrees F. When specialty dressing removed/ or if you do not have one, continue to shower daily as above, then rinse and pat incision dry and paint with betadine daily x 5 days. Allow steri strips to fall off if you have any. Avoid lotions, creams, salves, oils, etc. for the first month Please see attached forms for additional instructions regarding post Open Heart specialty wound vacuum dressings. [place] or Prevena , Dressing to be removed by Nursing staff on ___//____ F/U appointment: as per [place] instructions: PCP in 2 weeks, CV surgeon 2 weeks, Costing Analyst 3-4 weeks For any questions regarding incisions/ dressing / meds / post op care or above Symptoms, Sunday 8am-5pm Heart & Vascular Surgery Office ( Dr. Hunt & Dr. Carlton), After Hours / Nights (5pm -8am) Weekends and Holidays Please call [facility] Cardiac Inter[facility] Unit ([facility]) Charge Nurse
--- NOTE | 2018-05-20 14:13 | ECG ---
Date Performed: 05/17/2018 Time Performed: 20:41:26 PTAGE: 72 years EKG: Atrial fibrillation with rapid ventricular response Lateral ST elevation, CONSIDER ACUTE IN FARCT Continued evolution of myocardial infarction Abnormal ECG PREVIOUS TRACING : 05/17/18 DOCTOR: Kenji Garduno Interpretating Date/Time 05/20/2018 14:11:30
--- NOTE | 2018-05-20 20:00 | P.PNONC ---
Subjective Interval history: Sitting in wheelchair. Family at side. Looking forward to going home. Objective Vital Signs/Intake & Output: Vital Signs 05/19/18 20:00 05/19/18 20:41 05/19/18 21:00 Temperature Pulse Rate 70 70 Respiratory Rate 18 Blood Pressure Pulse Oximetry 05/19/18 22:00 05/19/18 23:00 05/20/18 00:00 Temperature 98.4 F Pulse Rate 68 75 68 Respiratory Rate 21 Blood Pressure 138/63 Pulse Oximetry 95 05/20/18 01:00 05/20/18 02:00 05/20/18 03:00 Temperature 98.3 F Pulse Rate 74 76 71 Respiratory Rate 16 Blood Pressure 153/67 H Pulse Oximetry 97 05/20/18 03:59 05/20/18 04:00 05/20/18 05:00 Temperature Pulse Rate 62 66 Respiratory Rate 18 Blood Pressure Pulse Oximetry 05/20/18 06:00 05/20/18 07:00 05/20/18 08:00 Temperature 99.0 F Pulse Rate 64 66 74 Respiratory Rate 18 Blood Pressure 118/75 Pulse Oximetry 98 97 05/20/18 09:00 05/20/18 10:00 05/20/18 11:00 Temperature 98.7 F Pulse Rate 74 78 63 Respiratory Rate 18 Blood Pressure 120/57 L Pulse Oximetry 95 05/20/18 12:00 05/20/18 13:00 05/20/18 14:00 Temperature Pulse Rate 63 58 L 60 Respiratory Rate Blood Pressure Pulse Oximetry 05/20/18 15:00 05/20/18 16:00 Temperature 98.9 F Pulse Rate 63 72 Respiratory Rate 18 Blood Pressure 129/60 Pulse Oximetry 97 Intake & Output 05/20/18 05/20/18 05/21/18 06:59 18:59 06:59 Intake Total 240 / 240 Output Total 1100 / 1100 Balance -860 / -860 Weight 80 kg Intake: Oral 240 / 240 Output: Urine 1100 / 1100 Other: # Voids 5 Date of Last Bowel Movement 05/18/18 05/19/18 Result Diagrams: 05/20/18 04:23 05/19/18 05:20 Laboratory Results: Laboratory Results - last 24 hr 05/19/18 05/20/18 05/20/18 21:25 04:23 08:51 WBC 3.9 L RBC 2.81 L Hgb 9.2 L Hct 27.0 L MCV 95.9 MCH 32.8 MCHC 34.2 RDW 16.3 Plt Count 153 MPV 8.8 Neut % (Auto) 72.3 H Lymph % (Auto) 11.7 [place] % (Auto) 10.4 H Eos % (Auto) 4.9 H Baso % (Auto) 0.7 Neut # (Auto) 2.8 Lymph # (Auto) 0.5 L [place] # (Auto) 0.4 Eos # (Auto) 0.2 Baso # (Auto) 0.0 WBC Differential . Differential Comment Auto diff final POC Glucose 197 H 196 H 05/20/18 11:55 WBC RBC Hgb Hct MCV MCH MCHC RDW Plt Count MPV Neut % (Auto) Lymph % (Auto) [place] % (Auto) Eos % (Auto) Baso % (Auto) Neut # (Auto) Lymph # (Auto) [place] # (Auto) Eos # (Auto) Baso # (Auto) WBC Differential Differential Comment POC Glucose 223 H Culture Results: Microbiology 05/18/18 13:13 Stool Occult Blood (OWEN) - Final Stool Hemoccult negative Medications: Active Medications Generic Name Dose Route Start Last Admin Trade Name Freq PRN Reason Stop Dose Admin Hydrocodone Bitart/Acetaminophen 1 tab 05/14/18 12:08 05/20/18 16:05 [place] 5/325 PO 1 tab Q3H PRN Administration PAIN SCALE 1 TO 5 Al Hydroxide/Mg Hydroxide 30 ml 05/15/18 09:00 05/20/18 09:04 Milk Of Magnesia Liq PO 30 ml DAILY ZAID Administration Albuterol 1 ampul 05/14/18 12:08 05/16/18 21:40 Duoneb Neb (Prn) NEB 1 ampul Q2HR NEB PRN Administration WHEEZING Amiodarone HCl 200 mg 05/14/18 21:00 05/17/18 20:57 Cordarone PO Not Given Q12HR ZAID Amiodarone HCl 400 mg 05/19/18 21:00 05/20/18 09:01 Cordarone PO 400 mg BID ZAID Administration Apixaban 5 mg 05/19/18 21:00 05/20/18 09:03 Eliquis PO 5 mg BID ZAID Administration Aspirin 81 mg 05/15/18 09:00 12/03/18 09:02 Aspirin Chew PO 81 mg DAILY ZAID Administration Atorvastatin Calcium 40 mg 05/16/18 09:00 05/20/18 09:02 Lipitor PO 40 mg DAILY ZAID Administration Clopidogrel Bisulfate 75 mg 05/15/18 09:00 05/16/18 08:58 Plavix PO Not Given DAILY [facility] Cyanocobalamin 1,000 mcg 05/18/18 09:00 05/20/18 09:02 Vitamin B12 PO 1,000 mcg DAILY ZAID Administration Docusate Sodium 100 mg 05/15/18 21:00 05/20/18 09:03 Colace PO 100 mg BID ZAID Administration Sodium Chloride 500 mls @ 30 mls/hr 05/14/18 07:00 05/14/18 07:23 Ns Inj IV.SIG Not Given .Q10H [facility] Insulin Aspart 0 unit 05/16/18 12:00 05/20/18 12:02 Novolog Insulin Correctional Sugar Inj SQ 14 unit ACHS ZAID Administration Protocol Insulin Detemir 10 unit 05/15/18 21:00 05/20/18 09:03 Levemir Inj SQ 10 unit BID [facility] Administration Metformin HCl 500 mg 05/15/18 18:00 05/16/18 17:44 Glucophage PO 500 mg BIDPC [facility] Administration Metoprolol Tartrate 25 mg 05/15/18 09:00 05/20/18 09:03 Lopressor PO 25 mg BID [facility] Administration Multivitamins/Minerals 1 tab 05/15/18 09:00 05/20/18 09:03 Theragran-M PO 1 tab DAILY [facility] Administration Ondansetron HCl 4 mg 05/14/18 12:08 05/18/18 20:42 Zofran Inj IV.PUSH 4 mg Q6H PRN Administration NAUSEA OR VOMITING Pantoprazole Sodium 40 mg 05/15/18 06:00 05/20/18 05:31 Protonix PO 40 mg DAILY@06 ZAID Administration Polyethylene Glycol 17 gm 05/16/18 09:00 05/20/18 09:04 Miralax PO Not Given DAILY [facility] Sennosides 8.6 mg 05/15/18 21:00 05/19/18 20:45 Senokot PO 8.6 mg HS ZAID Administration Sodium Chloride 2 ml 05/14/18 09:00 05/20/18 09:04 Ns Flush IV.FLUSH 2 ml BID ZAID Administration Sodium Chloride 2 ml 05/14/18 06:15 05/18/18 20:46 Ns Flush IV.FLUSH 2 ml PRN PRN Administration FLUSH AFTER USING IV ACCESS Objective Remarks: GENERAL: Well-nourished, well-developed patient. SKIN: Warm and dry. HEAD: Normocephalic. EYES: No scleral icterus. No injection or drainage. RESPIRATORY: No accessory muscle use. NEUROLOGICAL: No obvious focal deficit. Awake, alert, and oriented x3. PSYCHIATRIC: Appropriate mood and affect; insight and judgment normal. Assessment/Plan - Plan 1. Right posterior tibial vein thrombosis: continue apixaban. 3 months of anticoagulation. 2. TCP: stable after transfusion. No sign of DIC, TMA, ITP. HIT negative. ERUM pending. Will continue to trend counts. 3. Stage II cervical cancer: s/p concurrent cisplatin and radiation therapy.
== END 2018-05-20 17:30 ==
LOC: HSDI 05:25 → HCVI 13:03 → HCPC 05-15 12:28
PROVIDERS: ADMIT Thoracic Surgery (Cardiothoracic Vascular Surgery); ATTEND Thoracic Surgery (Cardiothoracic Vascular Surgery)